=== PATIENT | female | born 1970 | race Caucasian/White ===

== ENCOUNTER 2020-06-08 04:22 | Inpatient (IN) ==
[2020-06-08] MEDS ORDERED: 0.9 % SODIUM CHLORIDE 2,000 ML IV ONE (04:40)
[2020-06-08] MEDS ORDERED: ONDANSETRON 4 MG/2 ML VIAL IV ONE ×2 (04:40→08:43)
--- NOTE | 2020-06-08 04:50 | Emergency Department Note ---
Abdominal Pain HPI General Chief Complaint: Abdominal Pain Stated Complaint: abd, back ,chest pain Time Seen by Provider: 06/08/20 04:39 Source: patient Mode of arrival: ambulatory Limitations: no limitations History of Present Illness HPI Narrative: Narrative: 50-year-old female comes in for severe abdominal pain that started 10:30 PM-about 6 hours ago. Sudden onset. Nausea and vomiting with that but no diarrhea. No shortness of breath or fever. She is tremulous. She also complains of dysuria. She has not been able to eat well for several weeks now because of nausea with eating She has a black eye on the right as well as bruising across her back from her recent fall. She also notes a recent fall causing ankle fracture on the left- she had to have emergency surgery for that. I reviewed her chart and note that I saw her last year for an episode of alcohol withdrawal-she admits to using alcohol episodically but not every day. She drinks 2-3 cocktails, 2-3 times per week Related Data Home Medications Medication Instructions Recorded Confirmed fenofibrate nanocrystallized 145 145 mg PO QDAY 01/11/19 03/27/20 mg tablet metoprolol tartrate 25 mg tablet 25 mg PO BID 01/11/19 03/27/20 olmesartan 40 mg tablet 40 mg PO QDAY 01/11/19 03/27/20 Lunesta 06/08/20 Previous Rx's Medication Instructions Recorded lisinopril 20 mg tablet 20 mg PO QDAY #30 tab 01/11/19 Allergies Allergy/AdvReac Type Severity Reaction Status Date / Time Amoxicillin Allergy Mild Rash Verified 06/08/20 04:30 Review of Systems ROS ROS Narrative: Narrative: All systems ED: reviewed and negative except as stated. PFSH Narrative Patient History Narrative: Narrative: Medical/Surgical/Family History All Active Problems (Updated 06/08/20 @ 07:13 by Alden Montalvo MD) Acute pancreatitis (Acute) Acute hypokalemia (Acute) Alcohol abuse (Acute) UTI (urinary tract infection) (Acute) Acute dehydration (Acute) Chest pain (Acute) Elevated liver enzymes (Acute) Alcohol withdrawal (Acute) Hypokalemia (Acute) Hypomagnesemia (Acute) Nausea and vomiting (Acute) Ankle fracture, right (Acute) Urinary tract infection (Acute) Maxillary sinusitis (Acute) Essential (primary) hypertension (Acute) Persistent cough for 3 weeks or longer (Acute) Surgical History (Updated 06/08/20 @ 04:46 by Alden Montalvo MD) History of ankle surgery (Acute) Social History Smoking Status: Never smoker Alcohol Intake Frequency: holiday/special occasion only Exam Narrative Narrative: Narrative: Periorbital ecchymosis noted around the right eye. However extraocular movements are intact. Pupils are equal and reactive. Conjunctive are clear sclerae white nonicteric. No nasal discharge or congesti on. Oropharynx pink and moist. Neck is supple without lymphadenopathy thyromegaly. Heart is regular rate and rhythm no murmur appreciated. Lungs are clear to auscultation bilaterally without wheezes rales rhonchi or respiratory distress. Soft diffusely tender. I do not see any point tenderness or guarding. Looking at her back I do see she is got some thinning of the old bruises on her upper and left side of her back-these are sufficiently faded and discolored. Palpation of anywhere in her back reproduces tenderness but worst at the paraspinal areas. I do not see a specific deformity. She is able to sit up move around lay back etc. without difficulty. Alert oriented able answer que stions appropriately General Limitations: no limitations Course Vital Signs Vital signs: Vital Signs Temperature 98.2 F 06/08/20 04:24 Pulse Rate 92 H 06/08/20 04:24 Respiratory Rate 18 06/08/20 04:24 Blood Pressure 117/77 06/08/20 04:24 Pulse Oximetry (%) 100 06/08/20 04:24 Temperature 98.2 F 06/08/20 04:24 Pulse Rate 86 06/08/20 07:18 Respiratory Rate 15 06/08/20 06:15 Blood Pressure 113/77 06/08/20 07:18 Pulse Oximetry (%) 91 06/08/20 07:18 [facility] MDM Narrative Medical decision making narrative: Narrative: Concern for UTI plus or minus nephrolithiasis versus intra-abdominal pathology. Will order CT scan urinalysis lab work. Start fluids nausea medicine and Dilaudid Laboratory shows hypokalemia. K rider ordered. Elevated amylase and lipase c onsistent with pancreatitis. CT scan confirms-interstitial pancreatitis without complication noted. Urinalysis [id number] dipstick shows moderate leukocytes large amount of blood negative nitrites specific gravity 1.025. Consistent with UTI and dehydration. Start Rocephin as she is not going to tolerate oral antibiotics Discussed results with patient. Contacted hospitalist, Dr. Arita. I discussed the case with him and he agreed to accept patient for further care in the hospital. Lab Data Lab results reviewed: Yes I reviewed the patient's lab results. Result diagrams: 06/08/20 04:54 06/08/20 04:54 Labs: Lab Results 06/08/20 06/08/20 06/08/20 Range/Units 04:54 04:54 04:54 WBC 10.2 (4.50-11.00) K/mcL RBC 2.78 L (3.59-5.38) M/mcL Hgb 10.5 L (11.2-15.7) g/dL Hct 30.1 L (34.1-44.9) % MCV 108.3 H (80.0-100.0) fL MCH 37.8 H (26.0-34.0) pg MCHC 34.9 (31.0-36.0) g/dL RDW 15.7 H (11.5-14.5) % Plt Count 294 (140-440) K/mcL MPV 9.2 (7.4-10.4) fL Gran % 78.2 H (38.0-78.0) % Lymph % (Auto) 7.5 L (15.5-49.0) % Smith % (Auto) 12.3 H (1.0-12.0) % Eos % (Auto) 1.4 (0.0-7.0) % Baso % (Auto) 0.6 (0.0-2.0) % Gran # 7.97 (1.80-8.00) K/mcL Lymph # (Auto) 0.76 L (1.50-4.80) K/mcL Smith # (Auto) 1.25 H (0.10-0.90) K/mcL Eos # (Auto) 0.14 (0.00-0.70) K/mcL Baso # (Auto) 0.06 (0.00-0.30) K/mcL PT (11.9-14.5) sec INR (0.9-1.1) VBG Lactic Acid 1.1 (0.5-2.0) mmol/L Sodium 136 (133-145) mmol/L Potassium 2.9 L* (3.3-5.1) mmol/L Chloride 100 (96-108) mmol/L Carbon Dioxide 21 L (22-30) mmol/L Anion Gap 15.0 (8-16) BUN 19 (6-20) mg/dl Creatinine 1.2 H (0.6-1.1) mg/dl POC Creatinine 1.2 H (0.6-1.1) mg/dl GFR Calculation 53 Glucose 164 H (70-105) mg/dL Calcium 10.2 (8.6-10.4) mg/dl Magnesium (1.6-2.5) mg/dL Total Bilirubin 0.6 (0.0-1.0) mg/dL GGT (5-36) U/L AST 42 H (0-37) U/l ALT 32 (0-40) U/l Alkaline Phosphatase 38 L (39-117) U/L Ammonia (11-51) umol/L Total Protein 6.9 (5.9-8.4) gm/dL Albumin 3.9 (3.2-5.2) gm/dL Globulin 3.0 (2.2-3.7) gm/dL Albumin/Globulin Ratio 1.3 (1.0-2.3) Amylase 1466 H (28-100) U/L Lipase 5840 H (7-60) U/L 06/08/20 06/08/20 06/08/20 Range/Units 04:54 04:54 04:54 WBC (4.50-11.00) K/mcL RBC (3.59-5.38) M/mcL Hgb (11.2-15.7) g/dL Hct (34.1-44.9) % MCV (80.0-100.0) fL MCH (26.0-34.0) pg MCHC (31.0-36.0) g/dL RDW (11.5-14.5) % Plt Count (140-440) K/mcL MPV (7.4-10.4) fL Gran % (38.0-78.0) % Lymph % (Auto) (15.5-49.0) % Smith % (Auto) (1.0-12.0) % Eos % (Auto) (0.0-7.0) % Baso % (Auto) (0.0-2.0) % Gran # (1.80-8.00) K/mcL Lymph # (Auto) (1.50-4.80) K/mcL Smith # (Auto) (0.10-0.90) K/mcL Eos # (Auto) (0.00-0.70) K/mcL Baso # (Auto) (0.00-0.30) K/mcL PT 13.6 (11.9-14.5) sec INR 1.0 (0.9-1.1) VBG Lactic Acid (0.5-2.0) mmol/L Sodium (133-145) mmol/L Potassium (3.3-5.1) mmol/L Chloride (96-108) mmol/L Carbon Dioxide (22-30) mmol/L Anion Gap (8-16) BUN (6-20) mg/dl Creatinine (0.6-1.1) mg/dl POC Creatinine (0.6-1.1) mg/dl GFR Calculation Glucose (70-105) mg/dL Calcium (8.6-10.4) mg/dl Magnesium 1.7 (1.6-2.5) mg/dL Total Bilirubin (0.0-1.0) mg/dL GGT 57 H (5-36) U/L AST (0-37) U/l ALT (0-40) U/l Alkaline Phosphatase (39-117) U/L Ammonia 13 (11-51) umol/L Total Protein (5.9-8.4) gm/dL Albumin (3.2-5.2) gm/dL Globulin (2.2-3.7) gm/dL Albumin/Globulin Ratio (1.0-2.3) Amylase (28-100) U/L Lipase (7-60) U/L Radiology Data Radiology results reviewed: Yes I reviewed the patient's radiology results. Radiology results narrative: CT scan of the abdomen pelvis with contrast shows relatively severe pancreatitis without pseudocyst or necrosis Discharge Plan Patient/Caregiver Discharge Instructions Pt seen by H[facility] SPRAYER/PA only: No Clinical Impression: Acute hypokalemia, Alcohol abuse, Acute dehydration Acute pancreatitis Qualifiers: Pancreatitis type: alcohol induced Acute pancreatitis complication: no infection or necrosis Qualified Code(s): K85.20 - Alcohol induced acute pancreatitis without necrosis or infection UTI (urinary tract infection) Qualifiers: Urinary tract infection type: acute cystitis Hematuria presence: with hematuria Qualified Code(s): N30.01 - Acute cystitis with hematuria Patient Disposition: Xfer As Inpt ([facility]) Condition: Fair Follow up with: Daniela Melchor MD [Primary Care Provider] - Prescriptions: No Action lisinopril 20 mg tablet 20 mg PO QDAY Qty: 30 RF: 1 olmesartan 40 mg tablet 40 mg PO QDAY RF: 0 fenofibrate nanocrystallized 145 mg tablet 145 mg PO QDAY RF: 0 metoprolol tartrate 25 mg tablet 25 mg PO BID RF: 0 Lunesta RF: 0
[2020-06-08 05:02] LABS: POC Creatinine 1.2 mg/dl (0.6-1.1)
[2020-06-08] MEDS: HYDROmorphone 0.5 MG/0.5 ML SYRINGE IV PRN ×4 (05:04→08:45)
[2020-06-08 05:50] LABS: Basophils # (Auto) 0.06 K/mcL (0.00-0.30); Basophils % (Auto) 0.6 % (0.0-2.0); Eosinophils # (Auto) 0.14 K/mcL (0.00-0.70); Eosinophils % (Auto) 1.4 % (0.0-7.0); Granulocytes % (Auto) 78.2 % (38.0-78.0); Hematocrit 30.1 % (34.1-44.9); Hemoglobin 10.5 g/dL (11.2-15.7); Lymphocytes # (Auto) 0.76 K/mcL (1.50-4.80); Lymphocytes % (Auto) 7.5 % (15.5-49.0); Mean Cell Volume 108.3 fL (80.0-100.0); Mean Corpuscular HGB Conc 34.9 g/dL (31.0-36.0); Mean Platelet Volume 9.2 fL (7.4-10.4); Monocytes # (Auto) 1.25 K/mcL (0.10-0.90); Monocytes % (Auto) 12.3 % (1.0-12.0); Platelet Count 294 K/mcL (140-440); RBC 2.78 M/mcL (3.59-5.38); Red Cell Distribution Width 15.7 % (11.5-14.5); WBC 10.2 K/mcL (4.50-11.00)
[2020-06-08 06:03] LABS: Prothrombin Time 13.6 sec (11.9-14.5)
[2020-06-08 06:11] LABS: ALT/SGPT 32 U/l (0-40); AST/SGOT 42 U/l (0-37); Albumin 3.9 gm/dL (3.2-5.2); Albumin/Globulin Ratio 1.3 (1.0-2.3); Alkaline Phosphatase 38 U/L (39-117); Bilirubin,Total 0.6 mg/dL (0.0-1.0); Blood Urea Nitrogen 19 mg/dl (6-20); Calcium 10.2 mg/dl (8.6-10.4); Carbon Dioxide 21 mmol/L (22-30); Chloride 100 mmol/L (96-108); Glomerular Filtration Rate 53; Glucose 164 mg/dL (70-105)
[2020-06-08 06:38] LABS: Amylase 1466 U/L (28-100)
--- NOTE | 2020-06-08 06:41 | Cat Scan Report ---
INDICATION: severe abdominal and lumbar pain with n/v COMPARISON: None. TECHNIQUE: Axial images were obtained through the abdomen and pelvis. Sagittally and coronally reformatted images. 80 mL Isovue 370 injected intravenously. Oral contrast material was not administered FINDINGS: Lung bases:Negative. No pulmonary parenchymal nodule. No pleural fluid or pericardial fluid Liver:Low density liver consistent with hepatic steatosis. No discrete mass. Liver contour is smooth. No evidence for cirrhosis. Gallbladder, bilary:No calcified gallstones. No gallbladder wall thickening. No dilated intra or extrahepatic bile ducts. Spleen:No splenomegaly. Normal enhancement of splenic and portal veins. Pancreas:Findings consistent with interstitial edematous pancreatitis. There is peripancreatic inflammatory change. No discrete fluid collection. No evidence for pseudocyst. Pancreas appears perfused without evidence for pancreatic necrosis or abscess. There is mild retroperitoneal fluid in the left anterior pararenal space. Pancreatic duct is not dilated. There is no focal solid or cystic pancreatic mass. Adrenal glands:Negative Kidneys, ureters, bladder:No solid or cystic renal mass. No hydronephrosis. No obstructing calculi. There is no hydroureter. No ureteral stone No bladder calculi or detectable mass Gastrointestinal:No detectable colonic mass. There is no diverticulitis. Small bowel is negative. No mechanical small bowel obstruction. Stomach and duodenum are unremarkable Appendix: The appendix is not well visualized. No evidence for appendicitis Vascular:Negative abdominal aorta. Superior mesenteric artery and celiac trunk are normal. Normal opacification of the inferior mesenteric artery Lymphatic:No retroperitoneal or mesenteric adenopathy Mesentery, peritoneum: No free intraperitoneal fluid. No mesenteric or retroperitoneal mass. Reproductive:Uterus is anteflexed. No adnexal mass Musculoskeletal:No lumbar compression fractures. Sacrum and pelvis are negative. No hip fracture. IMPRESSION: 1. Interstitial edematous pancreatitis 2. No pseudocyst. No evidence for pancreatic necrosis or abscess 3. Mild retroperitoneal fluid in the left anterior pararenal space 4. Low density liver consistent with hepatic steatosis. The exam was performed using radiation dose optimization techniques including, but not limited to, automated exposure control, adjustment of the mA and/or kV according to patient size and use of iterative reconstruction technique. Interpreted and Authenticated by: Matt Joya 06/08/20
[2020-06-08] MEDS ORDERED: POTASSIUM CHLORIDE 20 MEQ in DEXTROSE 5% IN WATER 250 ML IV ONE (06:59)
[2020-06-08] MEDS ORDERED: cefTRIAXone 1 GM VIAL IV ONE (07:10)
[2020-06-08 08:56] LABS: Alcohol, Blood < 10.0 mg/dL (<10); Alcohol,Blood < 0.010 gm/dl (<0.010)
[2020-06-08] MEDS ORDERED: LISINOPRIL 20 MG TABLET PO SCH ×2 (09:00→21:00)
[2020-06-08] MEDS ORDERED: FENOFIBRATE NANOCRYSTALLIZED 145 MG PO SCH (09:00)
[2020-06-08] MEDS ORDERED: OLMESARTAN 40 MG PO SCH (09:00)
[2020-06-08 09:21] LABS: Appearance,Urine CLEAR; Bacteria,Urine 0 /hpf (0); Bilirubin,Urine NEG (NEG); Color,Urine STRAW; Culture Indicated,Urine YES; Glucose,Urine (UA) 50 mg/dL (NEG); Ketones,Urine NEG (NEG); Leukocyte Esterase,Urine 75 /uL (NEG); Mucus,Urine FEW /hpf (0); Nitrate,Urine NEG (NEG); Protein,Urine NEG (NEG); Specific Gravity,Urine 1.035 (1.000-1.035); Urine Blood 0.2 mg/dL (<0.03); Urine Hyaline Cast 1 /lpf (0-2); Urine RBC 17 /hpf (0-1); Urine Squamous Epithelial Cell < 1 /hpf (0-4); Urine WBC 36 /hpf (0-4); Urobilinogen,Urine NEG (NEG)
[2020-06-08 09:26] LABS: Ferritin 298.4 ng/ml (13-150); Phosphorous 3.2 mg/dL (2.7-4.5); Thyroid Stimulating Hormone 4.42 uIU/ml (0.27-5.01)
[2020-06-08 09:26] LABS: Amphetamine Screen,Urine NONE DETECTED (NONDETECTED); Barbiturate Screen,Urine NONE DETECTED (NONDETECTED); Benzodiazepines Screen,Urine NONE DETECTED (NONDETECTED); Cannabinoid Screen,Urine NONE DETECTED (NONDETECTED); Cocaine Screen,Urine NONE DETECTED (NONDETECTED); Opiate Screen,Urine NONE DETECTED (NONDETECTED); Oxycodone, Urine Screen NONE DETECTED (NONDETECTED); Phencyclidine Screen,Urine NONE DETECTED (NONDETECTED)
[2020-06-08] MEDS: DEXTROSE 5%-NS W/20MEQ KCL 1,000 ML IV SCH ×3 (09:45→17:30)
[2020-06-08] MEDS: ONDANSETRON 4 MG/2 ML VIAL IV PRN ×2 (09:52→20:34)
[2020-06-08] MEDS: HYDROmorphone 1 MG/ML SYRINGE IV PRN ×6 (09:52→23:09)
[2020-06-08] MEDS: METOPROLOL TARTRATE 25 MG TABLET PO SCH ×3 (10:22→21:27)
[2020-06-08] MEDS: ENOXAPARIN 40 MG/0.4 ML SYRINGE SQ SCH (10:27)
[2020-06-08] MEDS: 0.9 % SODIUM CHLORIDE 10 ML SYRINGE IV SCH ×2 (12:36→21:27)
[2020-06-08] MEDS: PROMETHAZINE 25 MG/ML VIAL IV PRN ×2 (15:18→23:24)
[2020-06-08] MEDS ORDERED: POTASSIUM CHLORIDE 40 MEQ in DEXTROSE 5% IN WATER 500 ML IV ONE (16:05)
--- NOTE | 2020-06-08 17:03 | Internal Med History&Physical ---
HPI History of Present Illness Patient information: Note initiated : 06/08/20 at 5:01 pm Service Date, if different from initiated Date: [] Patient: Diana White a 50 y/o F admitted on 06/08/20 for abd, back ,chest pain. Chief Complaint: abd pain nausea and vomiting History of present illness: Ms. White is a 50 year old F is here with Prince. Both admit to excessive alcohol in form of Vodka 5-6 oz x3 3-4 days a week. pt been drinking for about 15 years. been drinking for about 2years. Pt says she fell down door and had lots of bruising about a week ago when drunk. Decided her drinking was a problem and stopped then. Developed N/V abd pain after ate left over hamburger and threw up promptly. symptoms about 1030 last night. no past hx of pancreatitis. Gall bladder still intact. Pt has has UTI tx at urgent care 03/21/20. treated with nitrofurantoin and pyridium. Pt now with dysuria again but not hematuria. denies history of stones. Constitutional Constitutional: Present weight gain (10 lbs after covid and lack of activity) and weight loss (20lbs with effort prior to covid ) EENT Eyes: Present other (bruising due to elbowed in face during sleep by accidentally per his admission and pt supported statement just now. was worse bruising 10 days ago); Absent blind spots, blurry vision and change in vision Nose, mouth and throat: Absent dizziness and facial pain Cardiovascular Cardiovascular: Absent chest pain at rest, chest pain with activity and irregular heart rhythm Respiratory Respiratory: Absent cough, dyspnea on exertion and wheezing Gastrointestinal Gastrointestinal: Present abdominal pain, diarrhea, nausea and vomiting; Absent coffee ground emesis, constipation, hematemesis, hematochezia and melena Genitourinary Genitourinary: Present abnormal meses (chronic, no change, no menopause yet.) and dysuria; Absent hematuria, vaginal discharge and vaginal ordor Menstruation: cycle variable Musculoskeletal Musculoskeletal: Absent back pain Additional comments: has bruising from elbowed by accident and falls. says fell few times last few years. last big fall with back bruising prompted alcohol cessation Integumentary Integumentary: Present as per HPI Neurological Neurological: Present convulsions (once at home post nasal septum surgery and didnt drink for 5 days for surgery. stopped for total 2 weeks no more seizure then.), frequent falls (receny), tremor(s) (mild with alcohol withdrawal but last drink 7 days ago) and other (says feels better when doesnt drink alcohol); Absent abnormal gait (does fine when not drunk) Psychiatric Psychiatric: Present depression (says depressed bc not have work. bored. also lost 18 yo stepson previously) Endocrine Endocrine: Absent cold intolerance and polydipsia Hematologic/Lymphatic Hematologic/Lymphatic: Absent easy bleeding and easy bruising PFSH PFSH All Active Problems (Updated 06/08/20 @ 17:29 by Tray Arita MD) Acute pancreatitis (Acute) Acute hypokalemia (Acute) Alcohol abuse (Acute) UTI (urinary tract infection) (Acute) Acute dehydration (Acute) Chest pain (Acute) Elevated liver enzymes (Acute) Alcohol withdrawal (Acute) Hypokalemia (Acute) Hypomagnesemia (Acute) Nausea and vomiting (Acute) Ankle fracture, right (Acute) Urinary tract infection (Acute) Maxillary sinusitis (Acute) Essential (primary) hypertension (Acute) Persistent cough for 3 weeks or longer (Acute) Surgical History (Updated 06/08/20 @ 17:30 by Tray Arita MD) History of ankle surgery (Inactive) S/P surgery on nasal septum (Acute) Family History (Updated 06/08/20 @ 17:25 by Tray Arita MD) Mother Valvular heart disease Father CAD (coronary artery disease) Social History (Updated 06/08/20 @ 17:21 by Tray Arita MD) household members: spouse lives independently: Yes marital status: education level: college occupational status: employed occupation: Occupational therapist for [employer] well-balanced diet: other high-fat food intake: 3 or more times/day physical activity: weight training frequency: other smoking status: Never smoker alcohol intake frequency: 2+ drinks per day counseling provided: provider counseling and other substance use type: does not use additional history: wants full code status MEDS/ALLERGIES Home Medications and Allergies Home Medications Medication Instructions Recorded Confirmed Type fenofibrate nanocrystallized 145 145 mg PO QDAY 01/11/19 06/08/20 History mg tablet lisinopril 20 mg tablet 20 mg PO QDAY #30 tab 01/11/19 06/08/20 Rx metoprolol tartrate 25 mg tablet 25 mg PO BID 01/11/19 06/08/20 History olmesartan 40 mg tablet 40 mg PO QDAY 01/11/19 06/08/20 History Lunesta 06/08/20 History Allergies Allergy/AdvReac Type Severity Reaction Status Date / Time Amoxicillin Allergy Mild Rash Verified 06/08/20 04:30 hydrocodone AdvReac Mild nausea Verified 06/08/20 17:26 EXAM Constitutional Vitals: Temp Pulse Resp BP Pulse Ox 99.5 F H 110 H 18 132/80 98 06/08/20 16:00 06/08/20 16:00 06/08/20 16:00 06/08/20 16:00 06/08/20 16:00 Gen WDWN WF in NAD CV RRR Lungs CTA bilat ABd soft mild ruq and epigastric and diffuse tenderness. pt stoic. Says is sore. no rebound Calves no edema skin warm and dry MS bruising on back no hematoma. non tender. extensive bruising but fading 8 inch area Face right orbit bruising fading. 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 DATA Data Completed and Pending Labs on day of discharge: Labs from last 24 hours 06/08/20 06/08/20 06/08/20 08:31 08:31 08:13 WBC RBC Hgb Hct MCV MCH MCHC RDW Plt Count MPV Gran % Lymph % (Auto) [place] % (Auto) Eos % (Auto) Baso % (Auto) Gran # Lymph # (Auto) [place] # (Auto) Eos # (Auto) Baso # (Auto) PT INR VBG Lactic Acid Sodium Potassium Chloride Carbon Dioxide Anion Gap BUN Creatinine POC Creatinine GFR Calculation Glucose Calcium Phosphorus 3.2 Magnesium 1.6 Iron 67 TIBC 296 Unsat Iron Binding 229 Transferrin % Sat 22 Ferritin 298.4 H Total Bilirubin GGT AST ALT Alkaline Phosphatase Ammonia Total Protein Albumin Globulin Albumin/Globulin Ratio Triglycerides 181 H Cholesterol 188 LDL Cholesterol, Calc 110 H Non-HDL Cholesterol 146 H HDL Cholesterol 42 Amylase Lipase Vitamin B12 TSH 4.42 Urine Color Straw Urine Appearance Clear Urine pH 6.0 Ur Specific [place] 1.035 Urine Protein Neg Urine Glucose (UA) 50 A Urine Ketones Neg Urine Occult Blood 0.2 A Urine Nitrate Neg Urine Bilirubin Neg Urine Urobilinogen Neg Ur Leukocyte Esterase 75 A Urine RBC 17 H Urine WBC 36 H Ur Squamous Epith Cells < 1 Urine Bacteria 0 Hyaline Casts 1 Urine Mucus Few Ur Culture Indicated? Yes Urine Opiates Screen None detected Ur Opiates Confirm Not Reportable Ur Oxycodone Screen None detected Urine Methadone Screen None detected Ur Methadone Confirm Not Reportable Ur Barbiturates Screen None detected Ur Barbiturate Confirm Not Reportable Ur Phencyclidine Scrn None detected Urine PCP Confirm Not Reportable Ur Amphetamines Screen None detected U Amphetamines Confirm Not Reportable U Benzodiazepines Scrn None detected U Benzodiazepine Confm Not Reportable Urine Cocaine Screen None detected Urine Cocaine Confirm Not Reportable U Cannabinoids Confirm Not Reportable U Marijuana (THC) Screen None detected Ethyl Alcohol 06/08/20 06/08/20 06/08/20 08:13 08:13 04:54 WBC RBC Hgb Hct MCV MCH MCHC RDW Plt Count MPV Gran % Lymph % (Auto) [place] % (Auto) Eos % (Auto) Baso % (Auto) Gran # Lymph # (Auto) [place] # (Auto) Eos # (Auto) Baso # (Auto) PT INR VBG Lactic Acid Sodium Potassium Chloride Carbon Dioxide Anion Gap BUN Creatinine POC Creatinine GFR Calculation Glucose Calcium Phosphorus Magnesium Iron TIBC Unsat Iron Binding Transferrin % Sat Ferritin Total Bilirubin GGT AST ALT Alkaline Phosphatase Ammonia 13 Total Protein Albumin Globulin Albumin/Globulin Ratio Triglycerides Cholesterol LDL Cholesterol, Calc Non-HDL Cholesterol HDL Cholesterol Amylase Lipase Vitamin B12 907.0 TSH Urine Color Urine Appearance Urine pH Ur Specific [place] Urine Protein Urine Glucose (UA) Urine Ketones Urine Occult Blood Urine Nitrate Urine Bilirubin Urine Urobilinogen Ur Leukocyte Esterase Urine RBC Urine WBC Ur Squamous Epith Cells Urine Bacteria Hyaline Casts Urine Mucus Ur Culture Indicated? Urine Opiates Screen Ur Opiates Confirm Ur Oxycodone Screen Urine Methadone Screen Ur Methadone Confirm Ur Barbiturates Screen Ur Barbiturate Confirm Ur Phencyclidine Scrn Urine PCP Confirm Ur Amphetamines Screen U Amphetamines Confirm U Benzodiazepines Scrn U Benzodiazepine Confm Urine Cocaine Screen Urine Cocaine Confirm U Cannabinoids Confirm U Marijuana (THC) Screen Ethyl Alcohol < 0.010 06/08/20 06/08/20 06/08/20 04:54 04:54 04:54 WBC RBC Hgb Hct MCV MCH MCHC RDW Plt Count MPV Gran % Lymph % (Auto) [place] % (Auto) Eos % (Auto) Baso % (Auto) Gran # Lymph # (Auto) [place] # (Auto) Eos # (Auto) Baso # (Auto) PT 13.6 INR 1.0 VBG Lactic Acid 1.1 Sodium Potassium Chloride Carbon Dioxide Anion Gap BUN Creatinine POC Creatinine GFR Calculation Glucose Calcium Phosphorus Magnesium 1.7 Iron TIBC Unsat Iron Binding Transferrin % Sat Ferritin Total Bilirubin GGT 57 H AST ALT Alkaline Phosphatase Ammonia Total Protein Albumin Globulin Albumin/Globulin Ratio Triglycerides Cholesterol LDL Cholesterol, Calc Non-HDL Cholesterol HDL Cholesterol Amylase Lipase Vitamin B12 TSH Urine Color Urine Appearance Urine pH Ur Specific [place] Urine Protein Urine Glucose (UA) Urine Ketones Urine Occult Blood Urine Nitrate Urine Bilirubin Urine Urobilinogen Ur Leukocyte Esterase Urine RBC Urine WBC Ur Squamous Epith Cells Urine Bacteria Hyaline Casts Urine Mucus Ur Culture Indicated? Urine Opiates Screen Ur Opiates Confirm Ur Oxycodone Screen Urine Methadone Screen Ur Methadone Confirm Ur Barbiturates Screen Ur Barbiturate Confirm Ur Phencyclidine Scrn Urine PCP Confirm Ur Amphetamines Screen U Amphetamines Confirm U Benzodiazepines Scrn U Benzodiazepine Confm Urine Cocaine Screen Urine Cocaine Confirm U Cannabinoids Confirm U Marijuana (THC) Screen Ethyl Alcohol 06/08/20 06/08/20 04:54 04:54 WBC 10.2 RBC 2.78 L Hgb 10.5 L Hct 30.1 L MCV 108.3 H MCH 37.8 H MCHC 34.9 RDW 15.7 H Plt Count 294 MPV 9.2 Gran % 78.2 H Lymph % (Auto) 7.5 L [place] % (Auto) 12.3 H Eos % (Auto) 1.4 Baso % (Auto) 0.6 Gran # 7.97 Lymph # (Auto) 0.76 L [place] # (Auto) 1.25 H Eos # (Auto) 0.14 Baso # (Auto) 0.06 PT INR VBG Lactic Acid Sodium 136 Potassium 2.9 L* Chloride 100 Carbon Dioxide 21 L Anion Gap 15.0 BUN 19 Creatinine 1.2 H POC Creatinine 1.2 H GFR Calculation 53 Glucose 164 H Calcium 10.2 Phosphorus Magnesium Iron TIBC Unsat Iron Binding Transferrin % Sat Ferritin Total Bilirubin 0.6 GGT AST 42 H ALT 32 Alkaline Phosphatase 38 L Ammonia Total Protein 6.9 Albumin 3.9 Globulin 3.0 Albumin/Globulin Ratio 1.3 Triglycerides Cholesterol LDL Cholesterol, Calc Non-HDL Cholesterol HDL Cholesterol Amylase 1466 H Lipase 5840 H Vitamin B12 TSH Urine Color Urine Appearance Urine pH Ur Specific [place] Urine Protein Urine Glucose (UA) Urine Ketones Urine Occult Blood Urine Nitrate Urine Bilirubin Urine Urobilinogen Ur Leukocyte Esterase Urine RBC Urine WBC Ur Squamous Epith Cells Urine Bacteria Hyaline Casts Urine Mucus Ur Culture Indicated? Urine Opiates Screen Ur Opiates Confirm Ur Oxycodone Screen Urine Methadone Screen Ur Methadone Confirm Ur Barbiturates Screen Ur Barbiturate Confirm Ur Phencyclidine Scrn Urine PCP Confirm Ur Amphetamines Screen U Amphetamines Confirm U Benzodiazepines Scrn U Benzodiazepine Confm Urine Cocaine Screen Urine Cocaine Confirm U Cannabinoids Confirm U Marijuana (THC) Screen Ethyl Alcohol A/P Assessment and plan (1) Acute pancreatitis: Status: Acute Comment: pt with lipase 5000. etoh level none. gallbladder intact and no stones on CT ice chips only tonight. dilaudid for pain, zofran for nausea dvt prophylaxis with lovenox and protonix for GI prophylaxis Qualifiers: Acute pancreatitis complication: no infection or necrosis Pancreatitis type: alcohol induced Qualified Code(s): K85.20 - Alcohol induced acute pancreatitis without necrosis or infection (2) Acute hypokalemia: Status: Acute Comment: replaced IV riders and in maintenance fluid (3) Alcohol abuse: Status: Acute Comment: already quit and plans to quit permanently. Prince also plans to completely quit. (4) UTI (urinary tract infection): Status: Acute Comment: will treat with rocephin for 3-5 days. Qualifiers: Hematuria presence: with hematuria Urinary tract infection type: acute cystitis Qualified Code(s): N30.01 - Acute cystitis with hematuria Time Spent With Patient Time: Total time spent is greater than 50% in coordination of care (as documented) at patient's floor/unit and/or counseling patient: 70mins QUALITY Stroke Symptom Onset Unknown: No VTE Deep Vein Thrombosis/Pulmonary Embolism Present on Admission: No
[2020-06-08] MEDS ORDERED: POTASSIUM CHLORIDE 20 MEQ/10 ML VIAL IV ONE (17:53)
[2020-06-08] MEDS ORDERED: OLMESARTAN MEDOXOMIL 20 MG TABLET PO SCH (21:00)
[2020-06-08] MEDS ORDERED: chlordiazePOXIDE 5 MG CAPSULE PO PRN (21:01)
[2020-06-08] MEDS ORDERED: 0.9 % SODIUM CHLORIDE 500 ML IV ONE (21:03)
[2020-06-08] MEDS: SENNOSIDES 1 TABLET PO SCH (21:27)
[2020-06-08] MEDS: FENOFIBRATE 43 MG CAPSULE PO SCH (21:27)
[2020-06-09] MEDS: HYDROmorphone 1 MG/ML SYRINGE IV PRN ×10 (01:12→22:19)
[2020-06-09] MEDS: DEXTROSE 5%-NS W/20MEQ KCL 1,000 ML IV SCH ×4 (01:12→22:20)
[2020-06-09] MEDS: 0.9 % SODIUM CHLORIDE 10 ML SYRINGE IV SCH ×3 (04:07→20:08)
[2020-06-09] MEDS: ONDANSETRON 4 MG/2 ML VIAL IV PRN ×2 (05:57→12:39)
[2020-06-09 06:54] LABS: Basophils # (Auto) 0.02 K/mcL (0.00-0.30); Basophils % (Auto) 0.1 % (0.0-2.0); Eosinophils # (Auto) 0.04 K/mcL (0.00-0.70); Eosinophils % (Auto) 0.3 % (0.0-7.0); Granulocytes % (Auto) 82.1 % (38.0-78.0); Hematocrit 29.3 % (34.1-44.9); Hemoglobin 9.6 g/dL (11.2-15.7); Lymphocytes # (Auto) 0.54 K/mcL (1.50-4.80); Lymphocytes % (Auto) 3.9 % (15.5-49.0); Mean Cell Volume 114.5 fL (80.0-100.0); Mean Corpuscular HGB Conc 32.8 g/dL (31.0-36.0); Mean Platelet Volume 9.4 fL (7.4-10.4); Monocytes # (Auto) 1.88 K/mcL (0.10-0.90); Monocytes % (Auto) 13.6 % (1.0-12.0); Platelet Count 291 K/mcL (140-440); RBC 2.56 M/mcL (3.59-5.38); Red Cell Distribution Width 17.2 % (11.5-14.5); WBC 13.9 K/mcL (4.50-11.00)
[2020-06-09 07:20] LABS: ALT/SGPT 21 U/l (0-40); AST/SGOT 30 U/l (0-37); Albumin 3.1 gm/dL (3.2-5.2); Albumin/Globulin Ratio 1.1 (1.0-2.3); Alkaline Phosphatase 31 U/L (39-117); Bilirubin,Total 0.5 mg/dL (0.0-1.0); Blood Urea Nitrogen 11 mg/dl (6-20); Calcium 7.9 mg/dl (8.6-10.4); Carbon Dioxide 17 mmol/L (22-30); Chloride 107 mmol/L (96-108); Globulin 2.9 gm/dL (2.2-3.7); Glomerular Filtration Rate 44; Glucose 146 mg/dL (70-105)
[2020-06-09] MEDS: ENOXAPARIN 40 MG/0.4 ML SYRINGE SQ SCH (08:52)
[2020-06-09] MEDS: cefTRIAXone 1 GM VIAL IV SCH (08:52)
[2020-06-09] MEDS: METOPROLOL TARTRATE 25 MG TABLET PO SCH ×2 (08:52→20:09)
[2020-06-09 09:55] LABS: Hemoglobin A1C 5.1 % HGB (4.0-6.0)
--- NOTE | 2020-06-09 16:26 | Internal Med Progress Note ---
SUBJECTIVE Subjective Patient information: Note initiated : 06/09/20 at 4:23 pm Service Date, if different from initiated Date: [] Patient: Diana White 50 y/o F admitted on 06/08/20 for abd, back ,chest pain. Chief Complaint: still no appetite abd pain is better. no vomiting now. minimal nausea. Constitutional Vitals: Vital Signs Temp Pulse Resp BP Pulse Ox 98.1 F 102 H 18 97/67 96 06/09/20 12:00 06/09/20 12:00 06/09/20 12:00 06/09/20 12:00 06/09/20 12:00 Period Temp Pulse Resp BP Sys/Oliver Pulse Ox Last 24 Hr 98.1 F-99.8 F 102-106 16-18 96-108/62-76 94-96 Intake and Output 06/09/20 06/09/20 06/09/20 05:59 13:59 21:59 Intake Total 9284 381 6018 Output Total 300 Balance 455 144 8366 GEN WDWN WF in NAD CV rrr Lungs CTA ABd soft decreased bowel tones. mild epigastric tenderness skin warm and dry neuro alert and oriented not tremulous. Intake & Output: Intake & Output 06/09/20 06/09/20 06/09/20 05:59 13:59 21:59 Intake Total 6003 522 5537 Output Total 300 Balance 486 651 7513 Intake: IV 1000 1000 Dextrose 5%-Ns W/20Meq KCl 1, 1000 1000 000 ml @ 125 mls/hr IV .Q8H [facility] Rx#:[id number] Oral 50 450 Output: Void Amount 300 Other: Urine Color Dark Yellow Urine Odor Strong OBJ DATA Labs CBC & Chem 7: 06/09/20 05:00 06/09/20 04:59 Labs: Abnormal Lab Results 06/09/20 06/09/20 06/08/20 05:00 04:59 08:31 WBC 13.9 H RBC 2.56 L Hgb 9.6 L Hct 29.3 L MCV 114.5 H MCH 37.5 H RDW 17.2 H Gran % 82.1 H Lymph % (Auto) 3.9 L [place] % (Auto) 13.6 H Gran # 11.37 H Lymph # (Auto) 0.54 L [place] # (Auto) 1.88 H Potassium Carbon Dioxide 17 L Creatinine 1.4 H POC Creatinine Glucose 146 H Calcium 7.9 L Ferritin GGT AST Alkaline Phosphatase 31 L Albumin 3.1 L Triglycerides LDL Cholesterol, Calc Non-HDL Cholesterol Amylase Lipase 830 H Urine Glucose (UA) 50 A Urine Occult Blood 0.2 A Ur Leukocyte Esterase 75 A Urine RBC 17 H Urine WBC 36 H 06/08/20 06/08/20 06/08/20 08:13 04:54 04:54 WBC RBC Hgb Hct MCV MCH RDW Gran % Lymph % (Auto) [place] % (Auto) Gran # Lymph # (Auto) [place] # (Auto) Potassium 2.9 L* Carbon Dioxide 21 L Creatinine 1.2 H POC Creatinine 1.2 H Glucose 164 H Calcium Ferritin 298.4 H GGT 57 H AST 42 H Alkaline Phosphatase 38 L Albumin Triglycerides 181 H LDL Cholesterol, Calc 110 H Non-HDL Cholesterol 146 H Amylase 1466 H Lipase 5840 H Urine Glucose (UA) Urine Occult Blood Ur Leukocyte Esterase Urine RBC Urine WBC 06/08/20 04:54 WBC RBC 2.78 L Hgb 10.5 L Hct 30.1 L MCV 108.3 H MCH 37.8 H RDW 15.7 H Gran % 78.2 H Lymph % (Auto) 7.5 L [place] % (Auto) 12.3 H Gran # Lymph # (Auto) 0.76 L [place] # (Auto) 1.25 H Potassium Carbon Dioxide Creatinine POC Creatinine Glucose Calcium Ferritin GGT AST Alkaline Phosphatase Albumin Triglycerides LDL Cholesterol, Calc Non-HDL Cholesterol Amylase Lipase Urine Glucose (UA) Urine Occult Blood Ur Leukocyte Esterase Urine RBC Urine WBC Meds: Medications Ceftriaxone Sodium (Rocephin) 1 gm IV DAILY [facility]; Protocol Last Admin: 06/09/20 08:52 Dose: 1 gm Documented by: Chlordiazepoxide HCl (Librium) 10 mg PO QIDP PRN PRN Reason: Alcohol Withdrawal Enoxaparin Sodium (Lovenox) 40 mg SQ DAILY [facility] Last Admin: 06/09/20 08:52 Dose: 40 mg Documented by: Fenofibrate (Antara) 129 mg PO HS [facility] Last Admin: 06/08/20 21:27 Dose: Not Given Documented by: Fluoxetine HCl (Prozac) 20 mg PO HS [facility] Hydromorphone HCl (Dilaudid) 1 mg IV Q2HP PRN; Protocol PRN Reason: Per Pain Protocol Last Admin: 06/09/20 16:11 Dose: 1 mg Documented by: Potassium Chloride/Dextrose/Sod Cl (Dextrose 5%-Ns W/20meq Kcl) 1,000 mls @ 125 mls/hr IV .Q8H [facility] Last Admin: 06/09/20 14:43 Dose: 125 mls/hr Documented by: Metoprolol Tartrate (Lopressor) 25 mg PO BID [facility] Last Admin: 06/09/20 08:52 Dose: 25 mg Documented by: Olmesartan (Benicar) 20 mg PO [facility] Ondansetron HCl (Zofran) 4 mg IV Q6HP PRN PRN Reason: Nausea And Vomiting Last Admin: 06/09/20 12:39 Dose: 4 mg Documented by: Promethazine HCl (Phenergan) 12.5 mg IV Q6HP PRN PRN Reason: Nausea And Vomiting Last Admin: 06/08/20 23:24 Dose: 12.5 mg Documented by: Senna (Senokot) 2 tab PO [facility] Last Admin: 06/08/20 21:27 Dose: Not Given Documented by: Sodium Chloride (Saline Flush) 10 ml IV Q8 [facility] Last Admin: 06/09/20 13:14 Dose: Not Given Documented by: A/P Assessment and plan (1) Acute pancreatitis: Status: Acute Comment: pt with lipase 5000 on admit now 830 etoh level none. gallbladder intact and no stones on CT ice chips only tonight. dilaudid for pain, zofran for nausea dvt prophylaxis with lovenox and protonix for GI prophylaxis ok for water today Qualifiers: Acute pancreatitis complication: no infection or necrosis Pancreatitis type: alcohol induced Qualified Code(s): K85.20 - Alcohol induced acute pancreatitis without necrosis or infection (2) Alcohol abuse: Status: Acute Comment: already quit and plans to quit permanently. Prince also plans to completely quit. (3) Acute hypokalemia: Status: Acute Comment: resolved Time Spent With Patient Time: Total time spent is greater than 50% in coordination of care (as documented) at patient's floor/unit and/or counseling patient: 25 QUALITY Stroke Symptom Onset Unknown: No VTE Deep Vein Thrombosis/Pulmonary Embolism Present on Admission: No
[2020-06-09] MEDS: SENNOSIDES 1 TABLET PO SCH (20:08)
[2020-06-09] MEDS: FENOFIBRATE 43 MG CAPSULE PO SCH (20:08)
[2020-06-09] MEDS: FLUoxetine HCL 20 MG CAPSULE PO SCH (20:08)
[2020-06-09] MEDS ORDERED: OLMESARTAN MEDOXOMIL 20 MG TABLET PO SCH (21:00)
[2020-06-09] MEDS ORDERED: ACETAMINOPHEN 325 MG TABLET PO PRN (23:30)
[2020-06-09] MEDS ORDERED: ACETAMINOPHEN 325 MG TABLET PO ONE (23:39)
[2020-06-10] MEDS: HYDROmorphone 1 MG/ML SYRINGE IV PRN ×5 (00:19→19:17)
[2020-06-10] MEDS: 0.9 % SODIUM CHLORIDE 10 ML SYRINGE IV SCH ×3 (04:06→21:28)
[2020-06-10] MEDS: DEXTROSE 5%-NS W/20MEQ KCL 1,000 ML IV SCH ×3 (04:06→16:47)
[2020-06-10 06:19] LABS: Basophils # (Auto) 0.03 K/mcL (0.00-0.30); Basophils % (Auto) 0.3 % (0.0-2.0); Eosinophils # (Auto) 0.09 K/mcL (0.00-0.70); Eosinophils % (Auto) 0.9 % (0.0-7.0); Granulocytes % (Auto) 73.9 % (38.0-78.0); Hemoglobin 8.5 g/dL (11.2-15.7); Lymphocytes # (Auto) 0.75 K/mcL (1.50-4.80); Lymphocytes % (Auto) 7.9 % (15.5-49.0); Mean Cell Volume 117.4 fL (80.0-100.0); Mean Corpuscular HGB Conc 31.5 g/dL (31.0-36.0); Mean Platelet Volume 9.4 fL (7.4-10.4); Monocytes # (Auto) 1.62 K/mcL (0.10-0.90); Platelet Count 318 K/mcL (140-440); Red Cell Distribution Width 17.6 % (11.5-14.5); WBC 9.5 K/mcL (4.50-11.00)
[2020-06-10 07:05] LABS: ALT/SGPT 16 U/l (0-40); AST/SGOT 31 U/l (0-37); Albumin 2.9 gm/dL (3.2-5.2); Albumin/Globulin Ratio 1.1 (1.0-2.3); Alkaline Phosphatase 34 U/L (39-117); Bilirubin,Total 0.4 mg/dL (0.0-1.0); Blood Urea Nitrogen 14 mg/dl (6-20); Calcium 7.2 mg/dl (8.6-10.4); Carbon Dioxide 16 mmol/L (22-30); Globulin 2.7 gm/dL (2.2-3.7); Glomerular Filtration Rate 48; Glucose 121 mg/dL (70-105)
[2020-06-10 07:10] LABS: Chloride 113 mmol/L (96-108)
[2020-06-10] MEDS: ONDANSETRON 4 MG/2 ML VIAL IV PRN ×2 (07:11→13:26)
[2020-06-10] MEDS: METOPROLOL TARTRATE 25 MG TABLET PO SCH ×2 (08:36→21:10)
[2020-06-10] MEDS: ENOXAPARIN 40 MG/0.4 ML SYRINGE SQ SCH (09:12)
[2020-06-10] MEDS: cefTRIAXone 1 GM VIAL IV SCH (09:12)
[2020-06-10] MEDS ORDERED: HYDROcodone/APAP 5/325MG TABLET PO PRN (09:28)
[2020-06-10] MEDS ORDERED: ONDANSETRON 4 MG ODT TABLET SL PRN (09:28)
[2020-06-10] MEDS: LOPERAMIDE 2 MG CAPSULE PO PRN ×3 (13:27→23:43)
--- NOTE | 2020-06-10 15:24 | Internal Med Progress Note ---
SUBJECTIVE Subjective Patient information: Note initiated : 06/10/20 at 3:18 pm Service Date, if different from initiated Date: [] Patient: Diana White 50 y/o F admitted on 06/08/20 for abd, back ,chest pain. Chief Complaint: Follow-up pancreatitis Interval history: Started having flatus and then loose watery bowel movements today. Also complaining of lower abdominal as well as upper abdominal pain. Notes her urine seems to becoming darker had a mild bit of dysuria at the end of stream earlier today. Tried a popsicle, which tended to make her abdominal pain worse today. Did have some Jell-O earlier. Had temperature overnight to 101. Pertinent ROS: No nausea. Positive abdominal pain, diarrhea. Also complaining of cough which is nonproductive and feeling a mild dyspnea with end expiratory wheezing. Constitutional Vitals: Vital Signs Temp Pulse Resp BP Pulse Ox 97.9 F 104 H 16 99/64 100 06/10/20 12:00 06/10/20 12:00 06/10/20 12:00 06/10/20 12:00 06/10/20 12:00 Period Temp Pulse Resp BP Sys/Oliver Pulse Ox Last 24 Hr 97.7 F-101 F 93-112 16-18 91-101/63-68 95-100 Intake and Output 06/10/20 06/10/20 06/10/20 05:59 13:59 21:59 Intake Total 1072 1000 Output Total 200 Balance 872 1000 Weight 84.368 kg Patient Weight 06/11/20 05:59 Weight 84.368 kg General: Appears mildly uncomfortable Chest: Diminished at the left base, no wheezes. Upper airway wheeze with forced expiration noted Cardiovascular: Regular, trace lower extremity edema Abdomen: Soft, mild epigastric tenderness to palpation, mild lower quadrant tenderness. No guarding or rebound. Bowel sounds are present. Skin: Ecchymoses over the midline in the lumbar region, inferior to right shoulder blade, right periorbital area Neuro: Alert, oriented x3, nonfocal Intake & Output: Intake & Output 06/10/20 06/10/20 06/10/20 05:59 13:59 21:59 Intake Total 1072 1000 Output Total 200 Balance 872 1000 Weight 84.368 kg Intake: IV 952 1000 Dextrose 5%-Ns W/20Meq KCl 1, 952 1000 000 ml @ 125 mls/hr IV .Q8H [facility] Rx#:[id number] Oral 120 Output: Void Amount 200 Other: Urine Appearance Clear Urine Color Yellow Brown Urine Odor Normal Stool Size Large Large Stool Consistency Loose Watery # Voids 1 # Bowel Movements 1 1 OBJ DATA Labs CBC & Chem 7: 06/10/20 05:10 06/10/20 05:10 Labs: Abnormal Lab Results 06/10/20 06/10/20 06/09/20 05:10 05:10 05:00 WBC 13.9 H RBC 2.30 L 2.56 L Hgb 8.5 L 9.6 L Hct 27.0 L 29.3 L MCV 117.4 H 114.5 H MCH 37.0 H 37.5 H RDW 17.6 H 17.2 H Gran % 82.1 H Lymph % (Auto) 7.9 L 3.9 L [place] % (Auto) 17.0 H 13.6 H Gran # 11.37 H Lymph # (Auto) 0.75 L 0.54 L [place] # (Auto) 1.62 H 1.88 H Potassium Chloride 113 H Carbon Dioxide 16 L Creatinine 1.3 H POC Creatinine Glucose 121 H Calcium 7.2 L Ferritin GGT AST Alkaline Phosphatase 34 L Total Protein 5.6 L Albumin 2.9 L Triglycerides LDL Cholesterol, Calc Non-HDL Cholesterol Amylase Lipase 190 H Urine Glucose (UA) Urine Occult Blood Ur Leukocyte Esterase Urine RBC Urine WBC 06/09/20 06/08/20 06/08/20 04:59 08:31 08:13 WBC RBC Hgb Hct MCV MCH RDW Gran % Lymph % (Auto) [place] % (Auto) Gran # Lymph # (Auto) [place] # (Auto) Potassium Chloride Carbon Dioxide 17 L Creatinine 1.4 H POC Creatinine Glucose 146 H Calcium 7.9 L Ferritin 298.4 H GGT AST Alkaline Phosphatase 31 L Total Protein Albumin 3.1 L Triglycerides 181 H LDL Cholesterol, Calc 110 H Non-HDL Cholesterol 146 H Amylase Lipase 830 H Urine Glucose (UA) 50 A Urine Occult Blood 0.2 A Ur Leukocyte Esterase 75 A Urine RBC 17 H Urine WBC 36 H 06/08/20 06/08/20 06/08/20 04:54 04:54 04:54 WBC RBC 2.78 L Hgb 10.5 L Hct 30.1 L MCV 108.3 H MCH 37.8 H RDW 15.7 H Gran % 78.2 H Lymph % (Auto) 7.5 L [place] % (Auto) 12.3 H Gran # Lymph # (Auto) 0.76 L [place] # (Auto) 1.25 H Potassium 2.9 L* Chloride Carbon Dioxide 21 L Creatinine 1.2 H POC Creatinine 1.2 H Glucose 164 H Calcium Ferritin GGT 57 H AST 42 H Alkaline Phosphatase 38 L Total Protein Albumin Triglycerides LDL Cholesterol, Calc Non-HDL Cholesterol Amylase 1466 H Lipase 5840 H Urine Glucose (UA) Urine Occult Blood Ur Leukocyte Esterase Urine RBC Urine WBC Meds: Medications Acetaminophen (Tylenol) 650 mg PO Q4HP PRN; Protocol PRN Reason: Per Pain Protocol/Fever > 101 Last Admin: 06/10/20 13:26 Dose: 650 mg Documented by: Hydrocodone Bitart/Acetaminophen ([place] 5/325mg) 1 tab PO Q4HP PRN; Protocol PRN Reason: Per Pain Protocol Ceftriaxone Sodium (Rocephin) 1 gm IV DAILY [facility]; Protocol Last Admin: 06/10/20 09:12 Dose: 1 gm Documented by: Chlordiazepoxide HCl (Librium) 10 mg PO QIDP PRN PRN Reason: Alcohol Withdrawal Enoxaparin Sodium (Lovenox) 40 mg SQ DAILY [facility] Last Admin: 06/10/20 09:12 Dose: 40 mg Documented by: Fenofibrate (Antara) 129 mg PO [facility] Last Admin: 06/09/20 20:08 Dose: 129 mg Documented by: Fluoxetine HCl (Prozac) 20 mg PO [facility] Last Admin: 06/09/20 20:08 Dose: 20 mg Documented by: Hydromorphone HCl (Dilaudid) 1 mg IV Q2HP PRN; Protocol PRN Reason: Per Pain Protocol Last Admin: 06/10/20 05:51 Dose: 1 mg Documented by: Potassium Chloride/Dextrose/Sod Cl (Dextrose 5%-Ns W/20meq Kcl) 1,000 mls @ 125 mls/hr IV .Q8H [facility] Last Admin: 06/10/20 07:11 Dose: 125 mls/hr Documented by: Loperamide HCl (Imodium) 2 mg PO PRN PRN PRN Reason: Diarrhea Last Admin: 06/10/20 13:27 Dose: 2 mg Documented by: Metoprolol Tartrate (Lopressor) 25 mg PO BID [facility] Last Admin: 06/10/20 08:36 Dose: Not Given Documented by: Ondansetron HCl (Zofran) 4 mg IV Q6HP PRN PRN Reason: Nausea And Vomiting Last Admin: 06/10/20 13:26 Dose: 4 mg Documented by: Ondansetron HCl (Zofran Odt) 4 mg SL Q4-6HP PRN PRN Reason: Nausea And Vomiting Promethazine HCl (Phenergan) 12.5 mg IV Q6HP PRN PRN Reason: Nausea And Vomiting Last Admin: 06/08/20 23:24 Dose: 12.5 mg Documented by: Senna (Senokot) 2 tab PO HS [facility] Last Admin: 06/09/20 20:08 Dose: 2 tab Documented by: Sodium Chloride (Saline Flush) 10 ml IV Q8 [facility] Last Admin: 06/10/20 13:27 Dose: 10 ml Documented by: A/P Assessment and plan (1) Acute pancreatitis: Status: Acute Comment: pt with lipase 5000 on admit now 830 etoh level none. gallbladder intact and no stones on CT ice chips only tonight. dilaudid for pain, zofran for nausea dvt prophylaxis with lovenox and protonix for GI prophylaxis ok for water today Qualifiers: Acute pancreatitis complication: no infection or necrosis Pancreatitis type: alcohol induced Qualified Code(s): K85.20 - Alcohol induced acute pancreatitis without necrosis or infection (2) Acute hypokalemia: Status: Acute Comment: resolved (3) Alcohol abuse: Status: Acute Comment: already quit and plans to quit permanently. Prince also plans to completely quit. (4) UTI (urinary tract infection): Status: Acute Comment: will treat with rocephin for 3-5 days. Qualifiers: Hematuria presence: with hematuria Urinary tract infection type: acute cystitis Qualified Code(s): N30.01 - Acute cystitis with hematuria Narrative A/P Narrative: 50-year-old female with abdominal pain, admitted for acute pancreatitis. Acute pancreatitis. Etiology likely secondary to alcohol. Still with abdominal pain. Lipase continues to decrease. Creatinine remains mildly elevated, though improved 1.3 today. May be total body overloaded with some intravascular volume depletion. Concern for possible effusion with decreased breath sounds and subjective dyspnea. Plan: Continue with pain control, still requiring intravenous opioids for pain Try to transition to oral pain and nausea meds Continue with fluids Check chest x-ray, if evidence of pulmonary edema will need to consider diuresis Continue to follow labs Monitor for evidence of volume contraction. Alcohol abuse. Patient is abstinent, plans to remain abstinent Plan: Continue to encourage abstinence. Thiamine supplementation. Anemia. Has worsened with fluid suggesting dilution. No evidence of blood loss. Significant macrocytosis, could be secondary to alcohol. Plan: Continue to monitor, check B12 and folate levels. Urinary tract infection/acute cystitis. Present on admission. Culture with E. coli, sensitive to ceftriaxone. Plan: Continue ceftriaxone. Hypokalemia. Present on admission, resolved after supplementation. Plan: Monitor, supplement as needed QUALITY Stroke Symptom Onset Unknown: No VTE Deep Vein Thrombosis/Pulmonary Embolism Present on Admission: No
--- NOTE | 2020-06-10 15:40 | XRay Report ---
INDICATION: Cough, dyspnea; pancreatitis TECHNIQUE: PA and lateral upright chest x-ray COMPARISON: Chest x-rays dated 05/16/2019, 02/08/2019, 01/11/2019 FINDINGS: Lungs: Mild left lower lobe atelectasis. This is consistent with the diagnosis of interstitial edematous pancreatitis. Lungs are otherwise negative. Heart, vascular: No significant cardiomegaly. Pulmonary vascularity is normal. No pulmonary edema or pulmonary congestion Mediastinum, mariam: No mediastinal widening. No hilar mass Pleura:No pleural fluid. No pleural-based mass or calcification Thoracic spine, ribs: No thoracic compression fracture. Ribs are negative. No fracture. No lytic lesion Upper abdomen: Dilated gas-filled small bowel systems with ileus IMPRESSION: 1. Subtle left basilar atelectasis 2. Otherwise negative chest x-ray Interpreted and Authenticated by: Matt Joya 06/10/20
[2020-06-10] MEDS: FENOFIBRATE 43 MG CAPSULE PO SCH (21:10)
[2020-06-10] MEDS: FLUoxetine HCL 20 MG CAPSULE PO SCH (21:10)
[2020-06-10] MEDS: oxyCODONE/APAP 5/325MG TABLET PO PRN (21:10)
[2020-06-10] MEDS: SENNOSIDES 1 TABLET PO SCH (21:11)
[2020-06-10] MEDS ORDERED: oxyCODONE/APAP 5/325MG TABLET PO ONE (21:12)
[2020-06-11] MEDS: DEXTROSE 5%-NS W/20MEQ KCL 1,000 ML IV SCH (01:12)
[2020-06-11] MEDS: oxyCODONE/APAP 5/325MG TABLET PO PRN ×6 (01:12→19:14)
[2020-06-11] MEDS: LOPERAMIDE 2 MG CAPSULE PO PRN ×3 (01:12→08:54)
[2020-06-11] MEDS: 0.9 % SODIUM CHLORIDE 10 ML SYRINGE IV SCH ×3 (04:08→20:48)
[2020-06-11] MEDS: ONDANSETRON 4 MG/2 ML VIAL IV PRN (05:06)
[2020-06-11] MEDS: HYDROmorphone 1 MG/ML SYRINGE IV PRN (05:30)
[2020-06-11 06:43] LABS: Basophils # (Auto) 0.05 K/mcL (0.00-0.30); Basophils % (Auto) 0.6 % (0.0-2.0); Eosinophils # (Auto) 0.15 K/mcL (0.00-0.70); Eosinophils % (Auto) 1.7 % (0.0-7.0); Granulocytes % (Auto) 81.7 % (38.0-78.0); Hematocrit 31.1 % (34.1-44.9); Hemoglobin 9.2 g/dL (11.2-15.7); Lymphocytes # (Auto) 0.63 K/mcL (1.50-4.80); Lymphocytes % (Auto) 7.2 % (15.5-49.0); Mean Cell Volume 126.4 fL (80.0-100.0); Mean Corpuscular HGB Conc 29.6 g/dL (31.0-36.0); Monocytes # (Auto) 0.77 K/mcL (0.10-0.90); Monocytes % (Auto) 8.8 % (1.0-12.0); Platelet Count 301 K/mcL (140-440); RBC 2.46 M/mcL (3.59-5.38); Red Cell Distribution Width 17.9 % (11.5-14.5); WBC 8.8 K/mcL (4.50-11.00)
[2020-06-11 07:16] LABS: ALT/SGPT 40 U/l (0-40); AST/SGOT 106 U/l (0-37); Albumin 2.6 gm/dL (3.2-5.2); Albumin/Globulin Ratio 0.8 (1.0-2.3); Alkaline Phosphatase 45 U/L (39-117); Bilirubin,Direct 0.3 mg/dL (0.0-0.3); Bilirubin,Total 0.5 mg/dL (0.0-1.0); Blood Urea Nitrogen 7 mg/dl (6-20); Calcium 7.2 mg/dl (8.6-10.4); Carbon Dioxide 14 mmol/L (22-30); Chloride 112 mmol/L (96-108); Globulin 3.3 gm/dL (2.2-3.7); Glomerular Filtration Rate 75; Glucose 113 mg/dL (70-105); Lactate Dehydrogenase 330 U/L (94-250); Phosphorous 1.5 mg/dL (2.7-4.5); Triglycerides 169 mg/dl (<150); Uric Acid 2.2 mg/dL (2.5-8.0)
[2020-06-11] MEDS ORDERED: POTASSIUM PHOSPHATE 40 MEQ in DEXTROSE 5% IN WATER 500 ML IV ONE (07:20)
[2020-06-11] MEDS ORDERED: MAGNESIUM SULFATE 32.48 MEQ in DEXTROSE 5% IN WATER 50 ML IV ONE (07:20)
[2020-06-11] MEDS ORDERED: MAGNESIUM SULFATE 32.48 MEQ in DEXTROSE 5% IN WATER 100 ML IV ONE (07:45)
[2020-06-11] MEDS: cefTRIAXone 1 GM VIAL IV SCH (08:53)
[2020-06-11] MEDS: ENOXAPARIN 40 MG/0.4 ML SYRINGE SQ SCH (08:54)
[2020-06-11] MEDS: METOPROLOL TARTRATE 25 MG TABLET PO SCH ×2 (08:54→20:47)
[2020-06-11] MEDS: 0.9 % SODIUM CHLORIDE 1,000 ML IV SCH ×2 (08:54→14:57)
[2020-06-11 09:09] LABS: Folate 2.2 ng/mL (4.2-19.9)
[2020-06-11] MEDS: PANTOPRAZOLE 40 MG VIAL IV SCH (10:42)
[2020-06-11] MEDS: FLUoxetine HCL 20 MG CAPSULE PO SCH (20:47)
[2020-06-11] MEDS: FENOFIBRATE 43 MG CAPSULE PO SCH (20:47)
[2020-06-11] MEDS: SENNOSIDES 1 TABLET PO SCH (20:48)
--- NOTE | 2020-06-11 20:52 | Internal Med Progress Note ---
SUBJECTIVE Subjective Patient information: Note initiated : 06/11/20 at 8:50 pm Service Date, if different from initiated Date: [] Patient: Diana White 50 y/o F admitted on 06/08/20 for abd, back ,chest pain. Chief Complaint: Follow-up pancreatitis Interval history: Patient is a little tearful this morning, is having difficulty sleeping with multiple interruptions throughout the night due to pump alarms, labs, vital signs, etc. Now move to a quieter room off the main hallway. Still with abdominal pain, has not pushed hard with clear liquids as they still tend to make her abdomen hurt. Intermittent nausea persists. No dyspnea. Diarrhea is improving with Imodium. Pertinent ROS: As above Constitutional Vitals: Vital Signs Temp Pulse Resp BP Pulse Ox 97.7 F 89 18 114/79 98 06/11/20 16:00 06/11/20 20:00 06/11/20 16:00 06/11/20 16:00 06/11/20 16:00 Period Temp Pulse Resp BP Sys/Oliver Pulse Ox Last 24 Hr 97.3 F-98.8 F 87-95 16-20 102-126/71-85 97-99 Intake and Output 06/11/20 06/11/20 06/11/20 05:59 13:59 21:59 Intake Total 1240 1590 1880 Output Total 348 886 4816 Balance 460 840 330 General: Appears uncomfortable, little tearful Chest: Better aeration at bases, no crackles, no accessory muscle use Cardiovascular: Regular rate and rhythm, trace edema Abdomen: Mild epigastric to more pronounced left upper quadrant tenderness without guarding or rebound Neuro: Alert, oriented, ambulatory Intake & Output: Intake & Output 06/11/20 06/11/20 06/11/20 05:59 13:59 21:59 Intake Total 1240 1590 1880 Output Total 524 373 2783 Balance 460 840 330 Intake: IV 1000 1000 Dextrose 5%-Ns W/20Meq KCl 1, 1000 1000 000 ml @ 125 mls/hr IV .Q8H [facility] Rx#:[id number] Oral 109 [id number] 6981 Output: Void Amount 079 918 1055 Emesis 30 Other: Meal Lunch Dinner Percent of Meal Consumed Refused 100% Feeding Ability Independent Urine Appearance Clear Clear Clear Urine Color Bright Yellow Dark Yellow Bright Yellow Urine Odor Normal Normal Stool Size Moderate Small Stool Consistency Watery Liquid Watery # Voids 1 # Bowel Movements 1 1 OBJ DATA Labs CBC & Chem 7: 06/11/20 05:15 06/11/20 05:15 Labs: Abnormal Lab Results 06/11/20 06/11/20 06/11/20 07:38 05:15 05:15 WBC RBC 2.46 L Hgb 9.2 L Hct 31.1 L MCV 126.4 H MCH 37.4 H MCHC 29.6 L RDW 17.9 H Gran % 81.7 H Lymph % (Auto) 7.2 L [place] % (Auto) Gran # Lymph # (Auto) 0.63 L [place] # (Auto) Chloride 112 H Carbon Dioxide 14 L Creatinine Glucose 113 H Uric Acid 2.2 L Calcium 7.2 L Phosphorus 1.5 L Magnesium 1.3 L GGT 46 H AST 106 H Alkaline Phosphatase Lactate Dehydrogenase 330 H Total Protein Albumin 2.6 L Albumin/Globulin Ratio 0.8 L Triglycerides 169 H Lipase Folate 2.2 L 06/10/20 06/10/20 06/09/20 05:10 05:10 05:00 WBC 13.9 H RBC 2.30 L 2.56 L Hgb 8.5 L 9.6 L Hct 27.0 L 29.3 L MCV 117.4 H 114.5 H MCH 37.0 H 37.5 H MCHC RDW 17.6 H 17.2 H Gran % 82.1 H Lymph % (Auto) 7.9 L 3.9 L [place] % (Auto) 17.0 H 13.6 H Gran # 11.37 H Lymph # (Auto) 0.75 L 0.54 L [place] # (Auto) 1.62 H 1.88 H Chloride 113 H Carbon Dioxide 16 L Creatinine 1.3 H Glucose 121 H Uric Acid Calcium 7.2 L Phosphorus Magnesium GGT AST Alkaline Phosphatase 34 L Lactate Dehydrogenase Total Protein 5.6 L Albumin 2.9 L Albumin/Globulin Ratio Triglycerides Lipase 190 H Folate 06/09/20 04:59 WBC RBC Hgb Hct MCV MCH MCHC RDW Gran % Lymph % (Auto) [place] % (Auto) Gran # Lymph # (Auto) [place] # (Auto) Chloride Carbon Dioxide 17 L Creatinine 1.4 H Glucose 146 H Uric Acid Calcium 7.9 L Phosphorus Magnesium GGT AST Alkaline Phosphatase 31 L Lactate Dehydrogenase Total Protein Albumin 3.1 L Albumin/Globulin Ratio Triglycerides Lipase 830 H Folate Meds: Medications Acetaminophen (Tylenol) 650 mg PO Q4HP PRN; Protocol PRN Reason: Per Pain Protocol/Fever > 101 Last Admin: 06/10/20 13:26 Dose: 650 mg Documented by: Ceftriaxone Sodium (Rocephin) 1 gm IV DAILY [facility]; Protocol Last Admin: 06/11/20 08:53 Dose: 1 gm Documented by: Chlordiazepoxide HCl (Librium) 10 mg PO QIDP PRN PRN Reason: Alcohol Withdrawal Enoxaparin Sodium (Lovenox) 40 mg SQ DAILY [facility] Last Admin: 06/11/20 08:54 Dose: 40 mg Documented by: Fenofibrate (Antara) 129 mg PO [facility] Last Admin: 06/11/20 20:47 Dose: 129 mg Documented by: Fluoxetine HCl (Prozac) 20 mg PO HS [facility] Last Admin: 06/11/20 20:47 Dose: 20 mg Documented by: Folic Acid (Folic Acid) 2 mg PO DAILY [facility] Hydromorphone HCl (Dilaudid) 1 mg IV Q2HP PRN; Protocol PRN Reason: Per Pain Protocol Last Admin: 06/11/20 05:30 Dose: 1 mg Documented by: Sodium Chloride (Sodium Chloride 0.9%) 1,000 mls @ 125 mls/hr IV .Q8H [facility] Last Admin: 06/11/20 14:57 Dose: Not Given Documented by: Loperamide HCl (Imodium) 2 mg PO PRN PRN PRN Reason: Diarrhea Last Admin: 06/11/20 08:54 Dose: 2 mg Documented by: Metoprolol Tartrate (Lopressor) 12.5 mg PO BID [facility] Last Admin: 06/11/20 20:47 Dose: 12.5 mg Documented by: Ondansetron HCl (Zofran) 4 mg IV Q6HP PRN PRN Reason: Nausea And Vomiting Last Admin: 06/11/20 05:06 Dose: 4 mg Documented by: Ondansetron HCl (Zofran Odt) 4 mg SL Q4-6HP PRN PRN Reason: Nausea And Vomiting Oxycodone/Acetaminophen (Percocet 5-325 Mg) 1 tab PO Q4HP PRN; Protocol PRN Reason: Per Pain Protocol Last Admin: 06/11/20 19:14 Dose: 1 tab Documented by: Pantoprazole Sodium (Protonix) 40 mg IV QAMAC [facility] Last Admin: 06/11/20 10:42 Dose: 40 mg Documented by: Promethazine HCl (Phenergan) 12.5 mg IV Q6HP PRN PRN Reason: Nausea And Vomiting Last Admin: 06/08/20 23:24 Dose: 12.5 mg Documented by: Senna (Senokot) 2 tab PO HS [facility] Last Admin: 06/11/20 20:48 Dose: Not Given Documented by: Sodium Chloride (Saline Flush) 10 ml IV Q8 [facility] Last Admin: 06/11/20 14:06 Dose: Not Given Documented by: Imaging and cardiology Chest x-ray: Status: image reviewed by me Additional comments: IMPRESSION: 1. Subtle left basilar atelectasis 2. Otherwise negative chest x-ray A/P Narrative A/P Narrative: 50-year-old female with abdominal pain, admitted for acute pancreatitis. Acute pancreatitis. Etiology likely secondary to alcohol. Persisting abdominal pain with intermittent nausea. Lipase continues to decrease when checked yesterday. Creatinine improved to 0.9 today. Chest x-ray obtained yesterday due to subjective dyspnea diminished breath sounds at the bases without significant effusion or volume overload. Developing a mild non-anion gap metabolic acidosis. Plan: Continue with pain control, still requiring intravenous opioids for pain Continue to try to transition to oral pain and nausea meds Continue with IV fluids Replete phosphorus and magnesium today Continue to follow labs Monitor for evidence of volume contraction Continue clear liquids at this point Diarrhea. Unclear etiology. No antibiotic exposures. Has not had much solid f ood, though would expect to loose bowel movements. Plan: PRN Imodium Alcohol abuse. Patient is abstinent, plans to remain abstinent Plan: Continue to encourage abstinence. Thiamine supplementation. Anemia. Initially worsened with fluid suggesting dilution, though hemoglobin improved today. No evidence of blood loss. Significant macrocytosis, could be secondary to alcohol, however folate is decreased at 2.2. B12 levels are normal. Plan: Continue to monitor, begin folate supplementation. Urinary tract infection/acute cystitis. Present on admission. Culture with E. coli, sensitive to ceftriaxone. Plan: Continue ceftriaxone. Hypokalemia. Present on admission, resolved after supplementation. Plan: Monitor, supplement as needed Time Spent With Patient Time: Total time spent is greater than 50% in coordination of care (as documented) at patient's floor/unit and/or counseling patient: QUALITY Stroke Symptom Onset Unknown: No VTE Deep Vein Thrombosis/Pulmonary Embolism Present on Admission: No
[2020-06-12] MEDS: oxyCODONE/APAP 5/325MG TABLET PO PRN ×4 (00:05→13:50)
[2020-06-12] MEDS: 0.9 % SODIUM CHLORIDE 1,000 ML IV SCH ×2 (02:24→07:41)
[2020-06-12] MEDS: 0.9 % SODIUM CHLORIDE 10 ML SYRINGE IV SCH ×3 (04:10→20:27)
[2020-06-12 07:05] LABS: Basophils # (Auto) 0.03 K/mcL (0.00-0.30); Basophils % (Auto) 0.5 % (0.0-2.0); Eosinophils % (Auto) 1.5 % (0.0-7.0); Granulocytes % (Auto) 78.1 % (38.0-78.0); Hematocrit 25.1 % (34.1-44.9); Hemoglobin 8.1 g/dL (11.2-15.7); Lymphocytes % (Auto) 9.1 % (15.5-49.0); Mean Cell Volume 115.7 fL (80.0-100.0); Mean Corpuscular HGB Conc 32.3 g/dL (31.0-36.0); Mean Platelet Volume 9.4 fL (7.4-10.4); Monocytes # (Auto) 0.71 K/mcL (0.10-0.90); Monocytes % (Auto) 10.8 % (1.0-12.0); Platelet Count 408 K/mcL (140-440); RBC 2.17 M/mcL (3.59-5.38); Red Cell Distribution Width 17.5 % (11.5-14.5); WBC 6.6 K/mcL (4.50-11.00)
[2020-06-12] MEDS: PANTOPRAZOLE 40 MG VIAL IV SCH (07:40)
[2020-06-12 07:45] LABS: ALT/SGPT 38 U/l (0-40); AST/SGOT 60 U/l (0-37); Albumin 2.6 gm/dL (3.2-5.2); Alkaline Phosphatase 70 U/L (39-117); Bilirubin,Direct 0.2 mg/dL (0.0-0.3); Bilirubin,Total 0.4 mg/dL (0.0-1.0); Calcium 7.1 mg/dl (8.6-10.4); Globulin 2.7 gm/dL (2.2-3.7); Glomerular Filtration Rate 86; Glucose 83 mg/dL (70-105); Lactate Dehydrogenase 275 U/L (94-250); Triglycerides 176 mg/dl (<150); Uric Acid 1.9 mg/dL (2.5-8.0)
[2020-06-12 07:46] LABS: Blood Urea Nitrogen 3 mg/dl (6-20); Carbon Dioxide 17 mmol/L (22-30); Chloride 113 mmol/L (96-108); Phosphorous 2.3 mg/dL (2.7-4.5)
[2020-06-12] MEDS: FOLIC ACID 1 MG TABLET PO SCH (09:00)
[2020-06-12] MEDS: THIAMINE 100 MG TABLET PO SCH (09:00)
[2020-06-12] MEDS: cefTRIAXone 1 GM VIAL IV SCH (09:01)
[2020-06-12] MEDS: ENOXAPARIN 40 MG/0.4 ML SYRINGE SQ SCH (09:01)
[2020-06-12] MEDS: METOPROLOL TARTRATE 25 MG TABLET PO SCH ×2 (09:01→20:21)
--- NOTE | 2020-06-12 10:53 | Internal Med Progress Note ---
SUBJECTIVE Subjective Patient information: Note initiated : 06/12/20 at 10:48 am Service Date, if different from initiated Date: [] Patient: Diana White 50 y/o F admitted on 06/08/20 for abd, back ,chest pain. Chief Complaint: [] Follow-up pancreatitis Interval history: Feeling better today. Generally managing with oral meds. Still on clear liquids. Dyspnea is improved. Feels like she cleared secretions from her upper airway, no productive cough. Abdomen is improved, now generally only pain when flexing forward, as opposed to constant pain. Pertinent ROS: Minimal nausea, no fever, no dyspnea Constitutional Vitals: Vital Signs Temp Pulse Resp BP Pulse Ox 98.7 F 84 18 140/89 97 06/12/20 08:00 06/12/20 08:00 06/12/20 08:00 06/12/20 08:00 06/12/20 08:00 Period Temp Pulse Resp BP Sys/Oliver Pulse Ox Last 24 Hr 97.7 F-98.7 F 84-93 18-20 114-140/79-89 96-99 Intake and Output 06/11/20 06/12/20 06/12/20 21:59 05:59 13:59 Intake Total 2880 200 Output Total 2300 1500 200 Balance 580 -1300 -200 Weight 188 lb 1.6 oz General: In no acute distress Chest: Clear, good aeration to bases, no wheezes Cardiovascular: Regular, 1+ edema Abdomen: Soft, minimal epigastric/left upper quadrant tenderness, no guarding or rebound. Skin: Evolving ecchymoses on back and below right eye. Neuro: Alert, oriented x3, nonfocal Intake & Output: Intake & Output 06/11/20 06/12/20 06/12/20 21:59 05:59 13:59 Intake Total 2880 200 Output Total 2300 1500 200 Balance 580 -1300 -200 Weight 188 lb 1.6 oz Intake: IV 1000 Sodium Chloride 0.9% 1,000 ml @ 1000 125 mls/hr IV .Q8H [facility] Rx#: [id number] Oral 1880 200 Output: Void Amount 2300 1500 200 Other: Meal Dinner Percent of Meal Consumed 100% Feeding Ability Independent Urine Appearance Clear Clear Urine Color Bright Yellow Pale Straw Urine Odor Normal Normal OBJ DATA Labs CBC & Chem 7: 06/12/20 05:15 06/12/20 05:15 Labs: Abnormal Lab Results 06/12/20 06/12/20 06/11/20 05:15 05:15 07:38 RBC 2.17 L Hgb 8.1 L Hct 25.1 L MCV 115.7 H MCH 37.3 H MCHC RDW 17.5 H Gran % 78.1 H Lymph % (Auto) 9.1 L Sunflower % (Auto) Lymph # (Auto) 0.60 L Sunflower # (Auto) Chloride 113 H Carbon Dioxide 17 L BUN 3 L Creatinine Glucose Uric Acid 1.9 L Calcium 7.1 L Phosphorus 2.3 L Magnesium GGT 54 H AST 60 H Alkaline Phosphatase Lactate Dehydrogenase 275 H Total Protein 5.3 L Albumin 2.6 L Albumin/Globulin Ratio Triglycerides 176 H Lipase Folate 2.2 L 06/11/20 06/11/20 06/10/20 05:15 05:15 05:10 RBC 2.46 L Hgb 9.2 L Hct 31.1 L MCV 126.4 H MCH 37.4 H MCHC 29.6 L RDW 17.9 H Gran % 81.7 H Lymph % (Auto) 7.2 L Sunflower % (Auto) Lymph # (Auto) 0.63 L Sunflower # (Auto) Chloride 112 H 113 H Carbon Dioxide 14 L 16 L BUN Creatinine 1.3 H Glucose 113 H 121 H Uric Acid 2.2 L Calcium 7.2 L 7.2 L Phosphorus 1.5 L Magnesium 1.3 L GGT 46 H AST 106 H Alkaline Phosphatase 34 L Lactate Dehydrogenase 330 H Total Protein 5.6 L Albumin 2.6 L 2.9 L Albumin/Globulin Ratio 0.8 L Triglycerides 169 H Lipase 190 H Folate 06/10/20 05:10 RBC 2.30 L Hgb 8.5 L Hct 27.0 L MCV 117.4 H MCH 37.0 H MCHC RDW 17.6 H Gran % Lymph % (Auto) 7.9 L Sunflower % (Auto) 17.0 H Lymph # (Auto) 0.75 L Sunflower # (Auto) 1.62 H Chloride Carbon Dioxide BUN Creatinine Glucose Uric Acid Calcium Phosphorus Magnesium GGT AST Alkaline Phosphatase Lactate Dehydrogenase Total Protein Albumin Albumin/Globulin Ratio Triglycerides Lipase Folate Meds: Medications Acetaminophen (Tylenol) 650 mg PO Q4HP PRN; Protocol PRN Reason: Per Pain Protocol/Fever > 101 Last Admin: 06/10/20 13:26 Dose: 650 mg Documented by: Ceftriaxone Sodium (Rocephin) 1 gm IV DAILY [facility]; Protocol Last Admin: 06/12/20 09:01 Dose: 1 gm Documented by: Chlordiazepoxide HCl (Librium) 10 mg PO QIDP PRN PRN Reason: Alcohol Withdrawal Enoxaparin Sodium (Lovenox) 40 mg SQ DAILY [facility] Last Admin: 06/12/20 09:01 Dose: 40 mg Documented by: Fenofibrate (Antara) 129 mg PO [facility] Last Admin: 06/11/20 20:47 Dose: 129 mg Documented by: Fluoxetine HCl (Prozac) 20 mg PO [facility] Last Admin: 06/11/20 20:47 Dose: 20 mg Documented by: Folic Acid (Folic Acid) 2 mg PO DAILY [facility] Last Admin: 06/12/20 09:00 Dose: 2 mg Documented by: Hydromorphone HCl (Dilaudid) 1 mg IV Q2HP PRN; Protocol PRN Reason: Per Pain Protocol Last Admin: 06/11/20 05:30 Dose: 1 mg Documented by: Sodium Chloride (Sodium Chloride 0.9%) 1,000 mls @ 125 mls/hr IV .Q8H [facility] Last Admin: 06/12/20 07:41 Dose: Not Given Documented by: Loperamide HCl (Imodium) 2 mg PO PRN PRN PRN Reason: Diarrhea Last Admin: 06/11/20 08:54 Dose: 2 mg Documented by: Metoprolol Tartrate (Lopressor) 12.5 mg PO BID [facility] Last Admin: 06/12/20 09:01 Dose: 12.5 mg Documented by: Ondansetron HCl (Zofran) 4 mg IV Q6HP PRN PRN Reason: Nausea And Vomiting Last Admin: 06/11/20 05:06 Dose: 4 mg Documented by: Ondansetron HCl (Zofran Odt) 4 mg SL Q4-6HP PRN PRN Reason: Nausea And Vomiting Oxycodone/Acetaminophen (Percocet 5-325 Mg) 1 tab PO Q4HP PRN; Protocol PRN Reason: Per Pain Protocol Last Admin: 06/12/20 09:02 Dose: 1 tab Documented by: [facility]oprazole [facility]) [facility] Last Admin: 06/12/20 07:40 Dose: 40 mg Documented by: Promethazine HCl (Phenergan) 12.5 mg IV Q6HP PRN PRN Reason: Nausea And Vomiting Last Admin: 06/08/20 23:24 Dose: 12.5 mg Documented by: Rachelle (Senokot) 2 tab PO HS [facility] Last Admin: 06/11/20 20:48 Dose: Not Given Documented by: Sodium Chloride (Saline Flush) 10 ml IV Q8 [facility] Last Admin: 06/12/20 04:10 Dose: Not Given Documented by: Thiamine HCl (Vitamin B1) 100 mg PO DAILY [facility] Last Admin: 06/12/20 09:00 Dose: 100 mg Documented by: A/P Assessment and plan (1) Acute pancreatitis: Status: Acute Qualifiers: Acute pancreatitis complication: no infection or necrosis Pancreatitis type: alcohol induced Qualified Code(s): K85.20 - Alcohol induced acute pancreatitis without necrosis or infection Narrative A/P Narrative: 50-year-old female with abdominal pain, admitted for acute pancreatitis. Acute pancreatitis. Improving. Etiology likely secondary to alcohol. Lipase continues to decrease when checked 2 days ago. Creatinine stable at 0.8. Chest x-ray obtained 2 days ago due to subjective dyspnea and diminished breath sounds at the bases without significant effusion or volume overload. Developing a mild non-anion gap metabolic acidosis. Plan: Continue oral pain and nausea meds Saline lock Continue to follow labs, replete potassium and magnesium if needed Add Neutra-Phos orally to complete phosphorus repletion Advance diet to full liquids Possible discharge in 24 hours Diarrhea. Improving. Unclear etiology. No antibiotic exposures. Has not had much solid food, though would expect to loose bowel movements. Plan: PRN Imodium Alcohol abuse. Patient is abstinent, plans to remain abstinent Plan: Continue to encourage abstinence. Thiamine supplementation. Anemia. Initially worsened with fluid suggesting dilution. No evidence of blood loss. Significant macrocytosis, could be secondary to alcohol, however folate is decreased at 2.2. B12 levels are normal. Plan: Continue to monitor, folate supplementation. Urinary tract infection/acute cystitis. Present on admission. Culture with E. coli, sensitive to ceftriaxone. Plan: Continue ceftriaxone, should have completed treatment by discharge Hypokalemia. Present on admission, resolved after supplementation. Plan: Monitor, supplement as needed Time Spent With Patient Time: Total time spent is greater than 50% in coordination of care (as documented) at patient's floor/unit and/or counseling patient: QUALITY Stroke Symptom Onset Unknown: No VTE Deep Vein Thrombosis/Pulmonary Embolism Present on Admission: No
[2020-06-12] MEDS: NEUTRA PHOS 1 PACKET PO SCH ×2 (11:18→20:22)
--- NOTE | 2020-06-12 15:25 | Internal Med Progress Note ---
SUBJECTIVE Subjective Patient information: Note initiated : 06/12/20 at 3:19 pm Service Date, if different from initiated Date: [] Patient: Diana White a 50 y/o F admitted on 06/08/20 for abd, back ,chest pain. Chief Complaint: [] Interval history: History of present illness: Ms. White is a 50 year old F is here with [facility]. Both admit to excessive alcohol in form of Vodka 5-6 oz x3 3-4 days a week. pt been drinking for about 15 years. been drinking for about 2years. Pt says she fell down door and had lots of bruising about a week ago when drunk. Decided her drinking was a problem and stopped then. Developed N/V abd pain after ate left over hamburger and threw up promptly. symptoms about 1030 last night. no past hx of pancreatitis. Gall bladder still intact. Pt has has UTI tx at urgent care 03/21/20. treated with nitrofurantoin and pyridium. Pt now with dysuria again but not hematuria. denies history of sto charla. 06/09 still no appetite abd pain is better. no vomiting now. minimal nausea. 06/10 Started having flatus and then loose watery bowel movements today. Also complaining of lower abdominal as well as upper abdominal pain. Notes her urine seems to becoming darker had a mild bit of dysuria at the end of stream earlier today. Tried a popsicle, which tended to make her abdominal pain worse today. Did have some Jell-O earlier. Had temperature overnight to 101. 06/11 Patient is a little tearful this morning, is having difficulty sleeping with multiple interruptions throughout the night due to pump alarms, labs, vital signs, etc. Now move to a quieter room off the main hallway. Still with abdominal pain, has not pushed hard with clear liquids as they still tend to make her abdomen hurt. Intermittent nausea persists. No dyspnea. Diarrhea is improving with Imodium. 06/12 Feeling better today. Generally managing with oral meds. Still on clear liquids. Dyspnea is improved. Feels like she cleared secretions from her upper airway, no productive cough. Abdomen is improved, now generally only pain when flexing forward, as opposed to constant pain. 06/13 Constitutional Vitals: Vital Signs Temp Pulse Resp BP Pulse Ox 98.2 F 90 18 137/91 98 08/26/20 12:00 06/12/20 12:00 06/12/20 12:00 06/12/20 12:00 06/12/20 12:00 Period Temp Pulse Resp BP Sys/Oliver Pulse Ox Last 24 Hr 97.7 F-98.7 F 84-93 18-20 114-140/79-91 96-99 Intake and Output 06/12/20 06/12/20 06/12/20 05:59 13:59 21:59 Intake Total 200 880 Output Total 1500 900 Balance -1300 -20 Weight 85.321 kg Intake & Output: Intake & Output 06/12/20 06/12/20 06/12/20 05:59 13:59 21:59 Intake Total 200 880 Output Total 1500 900 Balance -1300 -20 Weight 85.321 kg Intake: Oral 200 880 Output: Void Amount 1500 900 Other: Meal Lunch Percent of Meal Consumed 100% Feeding Ability Assist with Tray Set Up Urine Appearance Clear Clear Urine Color Pale Straw Urine Odor Normal Exam: General: Alert, Awake, No acute Distress Eyes/N/T: EOMI, Head/Neck: neck supple, CV: RRR, No murmurs, Pulm: Clear b/l, no wheezing/rhonchi/rales Abd: soft,minimal epigastric/left upper quadrant tenderness, +BS x4 Ext: no clubbing/cyanosis, 1+ b/l LE edema Neuro: Alert, no focal deficits, moves all extremities, Skin: warm/dry, Evolving ecchymoses on back and below right eye OBJ DATA Labs CBC & Chem 7: 06/12/20 05:15 06/12/20 05:15 Labs: Abnormal Lab Results 06/12/20 06/12/20 06/11/20 05:15 05:15 07:38 RBC 2.17 L Hgb 8.1 L Hct 25.1 L MCV 115.7 H MCH 37.3 H MCHC RDW 17.5 H Gran % 78.1 H Lymph % (Auto) 9.1 L [place] % (Auto) Lymph # (Auto) 0.60 L [place] # (Auto) Chloride 113 H Carbon Dioxide 17 L BUN 3 L Creatinine Glucose Uric Acid 1.9 L Calcium 7.1 L Phosphorus 2.3 L Magnesium GGT 54 H AST 60 H Alkaline Phosphatase Lactate Dehydrogenase 275 H Total Protein 5.3 L Albumin 2.6 L Albumin/Globulin Ratio Triglycerides 176 H Lipase Folate 2.2 L 06/11/20 06/11/20 06/10/20 05:15 05:15 05:10 RBC 2.46 L Hgb 9.2 L Hct 31.1 L MCV 126.4 H MCH 37.4 H MCHC 29.6 L RDW 17.9 H Gran % 81.7 H Lymph % (Auto) 7.2 L [place] % (Auto) Lymph # (Auto) 0.63 L [place] # (Auto) Chloride 112 H 113 H Carbon Dioxide 14 L 16 L BUN Creatinine 1.3 H Glucose 113 H 121 H Uric Acid 2.2 L Calcium 7.2 L 7.2 L Phosphorus 1.5 L Magnesium 1.3 L GGT 46 H AST 106 H Alkaline Phosphatase 34 L Lactate Dehydrogenase 330 H Total Protein 5.6 L Albumin 2.6 L 2.9 L Albumin/Globulin Ratio 0.8 L Triglycerides 169 H Lipase 190 H Folate 06/10/20 05:10 RBC 2.30 L Hgb 8.5 L Hct 27.0 L MCV 117.4 H MCH 37.0 H MCHC RDW 17.6 H Gran % Lymph % (Auto) 7.9 L [place]icking % (Auto) 17.0 H Lymph # (Auto) 0.75 L [place] # (Auto) 1.62 H Chloride Carbon Dioxide BUN Creatinine Glucose Uric Acid Calcium Phosphorus Magnesium GGT AST Alkaline Phosphatase Lactate Dehydrogenase Total Protein Albumin Albumin/Globulin Ratio Triglycerides Lipase Folate Meds: Medications Acetaminophen (Tylenol) 650 mg PO Q4HP PRN; Protocol PRN Reason: Per Pain Protocol/Fever > 101 Last Admin: 06/10/20 13:26 Dose: 650 mg Documented by: Ceftriaxone Sodium (Rocephin) 1 gm IV DAILY [facility]; Protocol Last Admin: 06/12/20 09:01 Dose: 1 gm Documented by: Chlordiazepoxide HCl (Librium) 10 mg PO QIDP PRN PRN Reason: Alcohol Withdrawal Enoxaparin Sodium (Lovenox) 40 mg SQ DAILY [facility] Last Admin: 06/12/20 09:01 Dose: 40 mg Documented by: Fenofibrate (Antara) 129 mg PO HS [facility] Last Admin: 06/11/20 20:47 Dose: 129 mg Documented by: Fluoxetine HCl (Prozac) 20 mg PO HS [facility] Last Admin: 06/11/20 20:47 Dose: 20 mg Documented by: Folic Acid (Folic Acid) 2 mg PO DAILY [facility] Last Admin: 06/12/20 09:00 Dose: 2 mg Documented by: Hydromorphone HCl (Dilaudid) 1 mg IV Q2HP PRN; Protocol PRN Reason: Per Pain Protocol Last Admin: 06/11/20 05:30 Dose: 1 mg Documented by: Loperamide HCl (Imodium) 2 mg PO PRN PRN PRN Reason: Diarrhea Last Admin: 06/11/20 08:54 Dose: 2 mg Documented by: Metoprolol Tartrate (Lopressor) 12.5 mg PO BID [facility] Last Admin: 06/12/20 09:01 Dose: 12.5 mg Documented by: Ondansetron HCl (Zofran) 4 mg IV Q6HP PRN PRN Reason: Nausea And Vomiting Last Admin: 06/11/20 05:06 Dose: 4 mg Documented by: Ondansetron HCl (Zofran Odt) 4 mg SL Q4-6HP PRN PRN Reason: Nausea And Vomiting Oxycodone/Acetaminophen (Percocet 5-325 Mg) 1 tab PO Q4HP PRN; Protocol PRN Reason: Per Pain Protocol Last Admin: 06/12/20 13:50 Dose: 1 tab Documented by: Pantoprazole Sodium (Protonix) 40 mg IV QAMAC [facility] Last Admin: 06/12/20 07:40 Dose: 40 mg Documented by: Potassium/Phosphorus/Sodium (Neutra Phos) 1 packet PO BID [facility] Last Admin: 06/12/20 11:18 Dose: 1 packet Documented by: Promethazine HCl (Phenergan) 12.5 mg IV Q6HP PRN PRN Reason: Nausea And Vomiting Last Admin: 06/08/20 23:24 Dose: 12.5 mg Documented by: Senna (Senokot) 2 tab PO [facility] Last Admin: 06/11/20 20:48 Dose: Not Given Documented by: Sodium Chloride (Saline Flush) 10 ml IV Q8 [facility] Last Admin: 06/12/20 13:51 Dose: 10 ml Documented by: Thiamine HCl (Vitamin B1) 100 mg PO DAILY [facility] Last Admin: 06/12/20 09:00 Dose: 100 mg Documented by: A/P Narrative A/P Narrative: A: *Acute pancreatitis: Improving. Etiology likely secondary to alcohol. Lipase continues to decrease when checked 2 days ago. -Creatinine stable -CXR several days ago d/t subjective dyspnea without significant effusion or volume overload. -Developing a mild non-anion gap metabolic acidosis. *Alcohol abuse: Patient is abstinent, plans to remain abstinent *Diarrhea: Improving. Unclear etiology. No antibiotic exposures. -Has not had much solid food, though would expect to loose bowel movements. *Anemia: Initially worsened with fluid suggesting dilution. No evidence of blood loss. -Significant macrocytosis, could be secondary to alcohol, however folate is decreased at 2.2. B12 levels are normal. *UTI: Present on admission. Culture with E. coli, sensitive to ceftriaxone. *Hypokalemia. Present on admission, resolved after supplementation. * P: Continue oral pain and nausea meds Saline lock Continue to follow labs, replete potassium and magnesium if needed Add Neutra-Phos orally to complete phosphorus repletion Advance diet to full liquids Possible discharge in 24 hours -PRN Imodium -Continue to encourage etoh abstinence. Thiamine supplementation. -Continue ceftriaxone, should have completed treatment by discharge - -ppx: lovenox Time Spent With Patient Time: Total time spent is greater than 50% in coordination of care (as documented) at patient's floor/unit and/or counseling patient: QUALITY Stroke Symptom Onset Unknown: No VTE Deep Vein Thrombosis/Pulmonary Embolism Present on Admission: No
--- NOTE | 2020-06-12 19:36 | Discharge Summary ---
Discharge Provider Provider Patient information: Note initiated : 06/12/20 at 7:35 pm Service Date, if different from initiated Date: [] Patient: Diana White 50 y/o F admitted on 06/08/20 for abd, back ,chest pain. Chief Complaint: [] Date of admission: 06/08/20 08:49 Discharge date: 06/13/20 Primary care physician: Daniela Melchor Consults: 06/08/20 Consult to Physician [CONS] Stat Comment: Consulting Provider: Tray Arita Reason For Exam: Physician to Consult Discharge Meds Discharge Medications Home Medications fenofibrate nanocrystallized 145 mg tablet 145 mg PO QDAY 01/11/19 [History Confirmed 06/08/20 Last Taken Unknown] lisinopril 20 mg tablet 20 mg PO QDAY #30 tab 01/11/19 [Rx Confirmed 06/08/20 Last Taken 01/09/20] metoprolol tartrate 25 mg tablet 25 mg PO BID 01/11/19 [History Confirmed 06/08/20 Last Taken 01/09/20] olmesartan 40 mg tablet 40 mg PO QDAY 01/11/19 [History Confirmed 06/08/20 Last Taken Unknown] Lunesta 30 mg PO HSP PRN 06/08/20 [History Confirmed 06/08/20 Last Taken U nknown] telmisartan [Micardis] 80 mg PO DAILY 06/08/20 [History Confirmed 06/08/20 Last Taken Unknown] COURSE Hospital Course Hospital course: History of present illness: Ms. White is a 50 year old F is here with [facility]. Both admit to excessive alcohol in form of Vodka 5-6 oz x3 3-4 days a week. pt been drinking for about 15 years. been drinking for about 2years. Pt says she fell down door and had lots of bruising about a week ago when drunk. Decided her drinking was a problem and stopped then. Developed N/V abd pain after ate left over hamburger and threw up promptly. symptoms about 1030 last night. no past hx of pancreatitis. Gall bladder still intact. Pt has has UTI tx at urgent care 03/21/20. treated with nitrofurantoin and pyridium. Pt now with dysuria again but not hematuria. denies history of stones. 06/09 still no appetite abd pain is better. no vomiting now. minimal nausea. 06/10 Started having flatus and then loose watery bowel movements today. Also complaining of lower abdominal as well as upper abdominal pain. Notes her urine seems to becoming darker had a mild bit of dysuria at the end of stream earlier today. Tried a popsicle, which tended to make her abdominal pain worse today. Did have some Jell-O earlier. Had temperature overnight to 101. 06/11 Patient is a little tearful this morning, is having difficulty sleeping with multiple interruptions throughout the night due to pump alarms, labs, vital signs, etc. Now move to a quieter room off the main hallway. Still with abdominal pain, has not pushed hard with clear liquids as they still tend to make her abdomen hurt. Intermittent nausea persists. No dyspnea. Diarrhea is improving with Imodium. 06/12 Feeling better today. Generally managing with oral meds. Still on clear liquids. Dyspnea is improved. Feels like she cleared secretions from her upper airway, no productive cough. Abdomen is improved, now generally only pain when flexing forward, as opposed to constant pain. 06/13 Doing better and tolerating diet.. Stable for discharge *Acute pancreatitis: Improving. Etiology likely secondary to alcohol. *Alcohol abuse: Patient is abstinent, plans to remain abstinent *Diarrhea: Improving. Unclear etiology. No antibiotic exposures. -Has not had much solid food, though would expect to loose bowel movements. *Anemia: Initially worsened with fluid suggesting dilution. No evidence of blood loss. -Significant macrocytosis, could be secondary to alcohol, however folate is decreased at 2.2. B12 levels are normal. *UTI: Present on admission. Culture with E. coli, sensitive to ceftriaxone. Discharge diagnosis: Alcoholic pancreatitis alcohol abuse UTI anemia Time Spent with Patient Time attestation: Total time spent providing and/or coordinating discharge ser vices: Time spent: Greater than 30 minutes EXAM Constitutional Vitals: Temp Pulse Resp BP Pulse Ox 99.0 F 86 20 143/94 99 06/12/20 16:06/12/20 16:06/12/20 16:00 06/12/20 16:06/12/20 16:00 Discharge Data Data Completed and Pending Labs on day of discharge: Labs from last 24 hours 06/12/20 06/12/20 05:15 05:15 WBC 6.6 RBC 2.17 L Hgb 8.1 L Hct 25.1 L MCV 115.7 H MCH 37.3 H MCHC 32.3 RDW 17.5 H Plt Count 408 MPV 9.4 Gran % 78.1 H Lymph % (Auto) 9.1 L Fisher % (Auto) 10.8 Eos % (Auto) 1.5 Baso % (Auto) 0.5 Gran # 5.12 Lymph # (Auto) 0.60 L Fisher # (Auto) 0.71 Eos # (Auto) 0.10 Baso # (Auto) 0.03 Sodium 142 Potassium 3.7 Chloride 113 H Carbon Dioxide 17 L Anion Gap 12.0 BUN 3 L Creatinine 0.8 GFR Calculation 86 Glucose 83 Uric Acid 1.9 L Calcium 7.1 L Phosphorus 2.3 L Magnesium 2.2 Total Bilirubin 0.4 Direct Bilirubin 0.2 GGT 54 H AST 60 H ALT 38 Alkaline Phosphatase 70 Lactate Dehydrogenase 275 H Total Protein 5.3 L Albumin 2.6 L Globulin 2.7 Albumin/Globulin Ratio 1.0 Triglycerides 176 H Discharge Plan Patient/Caregiver Discharge Instructions Activity: increase activity as tolerated Diet: Low Fat Prescriptions: Continued lisinopril 20 mg tablet 20 mg PO QDAY Qty: 30 RF: 1 olmesartan 40 mg tablet 40 mg PO QDAY RF: 0 fenofibrate nanocrystallized 145 mg tablet 145 mg PO QDAY RF: 0 metoprolol tartrate 25 mg tablet 25 mg PO BID RF: 0 Lunesta tablet 30 mg PO HSP PRN (Reason: Insomnia) RF: 0 telmisartan [Micardis] 80 mg tablet 80 mg PO DAILY RF: 0 Follow Up Plan Follow up with: Daniela Melchor MD [Primary Care Provider] - Patient Disposition: Home, Self-Care Prognosis: Fair Discharge Orders: Discharge Order (Routine); Ordered 06/13/20 Ordered By: Larry Odonnell [facility] VTE Deep Vein Thrombosis/Pulmonary Embolism Present on Admission: No
[2020-06-12] MEDS: FLUoxetine HCL 20 MG CAPSULE PO SCH (20:22)
[2020-06-12] MEDS: FENOFIBRATE 43 MG CAPSULE PO SCH (20:22)
[2020-06-12] MEDS: SENNOSIDES 1 TABLET PO SCH (20:22)
[2020-06-13] MEDS: 0.9 % SODIUM CHLORIDE 10 ML SYRINGE IV SCH (05:10)
[2020-06-13 06:58] LABS: Basophils # (Auto) 0.05 K/mcL (0.00-0.30); Basophils % (Auto) 0.7 % (0.0-2.0); Eosinophils # (Auto) 0.11 K/mcL (0.00-0.70); Eosinophils % (Auto) 1.4 % (0.0-7.0); Granulocytes % (Auto) 76.5 % (38.0-78.0); Hematocrit 26.1 % (34.1-44.9); Hemoglobin 8.8 g/dL (11.2-15.7); Lymphocytes # (Auto) 0.77 K/mcL (1.50-4.80); Lymphocytes % (Auto) 10.1 % (15.5-49.0); Mean Cell Volume 107.9 fL (80.0-100.0); Mean Corpuscular HGB Conc 33.7 g/dL (31.0-36.0); Mean Platelet Volume 9.5 fL (7.4-10.4); Monocytes # (Auto) 0.86 K/mcL (0.10-0.90); Monocytes % (Auto) 11.3 % (1.0-12.0); Platelet Count 472 K/mcL (140-440); RBC 2.42 M/mcL (3.59-5.38); Red Cell Distribution Width 16.7 % (11.5-14.5); WBC 7.6 K/mcL (4.50-11.00)
[2020-06-13 07:12] LABS: Calcium 8.2 mg/dl (8.6-10.4); Carbon Dioxide 18 mmol/L (22-30); Glomerular Filtration Rate 101; Glucose 108 mg/dL (70-105)
[2020-06-13 07:14] LABS: Blood Urea Nitrogen 2 mg/dl (6-20); Chloride 111 mmol/L (96-108)
[2020-06-13] MEDS: PANTOPRAZOLE 40 MG VIAL IV SCH (07:39)
[2020-06-13] MEDS ORDERED: SIMETHICONE 80 MG TAB.CHEW CHEWED PRN ×2 (07:59→08:00)
[2020-06-13] MEDS ORDERED: TELMISARTAN 40 MG TABLET PO SCH (09:00)
[2020-06-13] MEDS: NEUTRA PHOS 1 PACKET PO SCH (09:03)
[2020-06-13] MEDS: METOPROLOL TARTRATE 25 MG TABLET PO SCH (09:03)
[2020-06-13] MEDS: FOLIC ACID 1 MG TABLET PO SCH (09:04)
[2020-06-13] MEDS: ENOXAPARIN 40 MG/0.4 ML SYRINGE SQ SCH (09:04)
[2020-06-13] MEDS: THIAMINE 100 MG TABLET PO SCH (09:04)
[2020-06-13] MEDS: cefTRIAXone 1 GM VIAL IV SCH (09:05)
== END 2020-06-13 13:30 | disposition home or self-care (01) | DRG 439 ==
LOC: ED 04:22 → MEDSUR 08:49
PROVIDERS: ADMIT Internal Medicine; ATTEND Internal Medicine